=== PATIENT | male | born 1975 | race Caucasian/White ===

== ENCOUNTER 2016-12-02 06:33 | Inpatient (IN) ==
[2016-12-02 07:00] LABS: Bilirubin,Urine Negative (Negative); Blood,Urine Negative (Negative); Clarity,Urine Clear (Clear); Color,Urine Yellow (Yellow); Glucose,Urine (UA) Normal (Normal); Ketones,Urine Negative (Negative); Leukocyte Esterase,Urine Negative (Negative); Nitrite,Urine Negative (Negative); Protein,Urine Negative (Neg-Trace); Specific Gravity,Urine 1.005 (1.010-1.025); Urobilinogen,Urine Normal (Normal)
[2016-12-02 07:06] LABS: Amphetamine Screen,Urine Negative ng/mL (Cutoff=1000); Barbiturate Screen,Urine Negative ng/mL (Cutoff=200); Benzodiazepines Screen,Urine Negative ng/mL (Cutoff=200); Cannabinoid Screen,Urine Negative ng/mL (Cutoff = 50); Cocaine Screen,Urine Positive ng/mL (Cutoff= 300); Opiate Screen,Urine Positive ng/mL (Cutoff=300); Phencyclidine Screen,Urine Negative ng/mL (Cutoff=25)
--- NOTE | 2016-12-02 07:18 | Emergency Department Note ---
Disposition Clinical Impression: Suicidal ideation Depression Qualifiers: Depression Type: major depressive disorder Major depression recurrence: recurrent Active/Remission status: currently active Major depression episode severity: moderate Qualified Code(s): F33.1 - Major depressive disorder, recurrent, moderate Alcoholism with alcohol dependence Qualifiers: Substance use status: with intoxication Complication of substance-induced condition: uncomplicated Qualified Code(s): F10.220 - Alcohol dependence with intoxication, uncomplicated Disposition: Admitted As Inpatient Condition: Fair Referrals: NO,PCP [Primary Care Provider] - Forms: ED Satisfaction Letter Psych HPI - General Chief Complaint: ED Psychiatric Symptoms Stated Complaint: SI Time Seen by Provider: 12/02/16 07:06 Source: patient Nursing Notes Reviewed: Yes Vital Signs Reviewed: Yes - History of Present Illness HPI Narrative: Chief complaint: Suicidal ideation history of chief complaint: This is a 41-year-old gentleman who studies been suicidal the last day. Said a long history of psychiatric problems and Mark depression. He says that he would probably get in his car and tried to wreck his car as a plan. Says he has been off his medicines for a while cages quit taking them. He states he uses heroin sometimes he smokes. He also drinks alcohol. He is cooperative here. He does have some track quiroz on his right arm but noticed. Infected. He also has hepatitis C with no medical care. He has a flat affect but is cooperative. He thinks he needs admitted to the hospital. He says last admission was a few months ago and he thinks it was in [place]. Past medical history reviewed, nurse's notes reviewed, medications reviewed, allergies reviewed. - Related Data Allergies Allergy/AdvReac Type Severity Reaction Status Date / Time Penicillins Allergy Hives Verified 12/02/16 06:35 Review of Systems: Review of systems are positive for depression and suicidal ideations. Negative for audio or visual hallucinations. Past Medical History - Past Medical History Medical history: Reports: hepatitis Psychiatric history: Reports: anxiety, bipolar, depression, prior suicide attempt, previous psychiatric hospitalization - Social History Smoking Status: Current every day smoker Smokeless Tobacco Status: No Alcohol use: Reports: heavy, recent Drug use: Reports: marijuana Physical Exam Vital signs temperature is 97.9, pulse is 99 and regular, respirations are 20 and unlabored, BP is 123/78, pulse ox is 95% on room air he was 72 kg. General he is alert cooperative flat affect. HEENT is normocephalic, PERRL, EOMI, no scleral icterus, midline airway no drooling or stridor. No nystagmus. Cardiovascular regular rate and rhythm with a recheck heart rate of 78, no rubs no murmurs Respiratory lungs are clear to auscultation bilaterally with good aeration Abdomen is soft nonsurgical good bowel sounds no masses Dermatologic: Skin is warm and dry no acute rash petechiae or jaundice. He does have multiple tattoos on his body 90s appear to be infected. Tract quiroz on his right arm with no signs of cellulitis or infection or abscess Neurologic he is alert to person place and time GCS is 15, he moves all extremities no focal deficits psychologic: he does have a flat affect but is cooperative here not of agitation or anxiety - General Limitations: no limitations General appearance: alert Course Vital Signs Temperature 97.9 F 12/02/16 06:35 Pulse Rate 99 12/02/16 06:35 Respiratory Rate 20 12/02/16 06:35 Blood Pressure 123/78 12/02/16 06:35 O2 Sat by Pulse Oximetry 94 L 12/02/16 06:35 Temperature 98.4 F 12/02/16 13:19 Pulse Rate 102 12/02/16 13:19 Respiratory Rate 18 12/02/16 13:19 Blood Pressure 123/75 12/02/16 13:19 O2 Sat by Pulse Oximetry 95 12/02/16 13:19 Oxygen Delivery Oxygen Delivery Room Air Psych - MDM Narrative Medical decision making narrative: Labs were drawn and urine was collected. We will make him a no AMA, suicide precautions. Once labs are back we will consult with 1A for evaluation and possible admission. He is in agreement to this plan. 0815 hrs.: Patient's labs are coming back his LFTs are slightly elevated most likely due to his previous drug abuse and hepatitis C. His all cause 198. We will need to wait was alcohol is below 100 before 1able evaluate him. Will repeat alcohol level about 5 hours from the first level is that should be down within the normal range. He is in agreement with this plan. He is updated on status. 1327 hrs.: This patient stable. He still voicing suicidal ideations. Spoke with 1a.m. they are coming to see him for evaluation. He is in agreement with plan. 1540 hrs.: 1-A evaluated the patient they think no admit him. He is homeless as expected. there speaking with psychiatry now. 1600 hrs.: Psychiatry is agreed to admit him. Patient's in agreement. Turning a little fidgety and anxious. Mother started him on some Valium discussed this with psychiatry and they are in agreement that. Patient's admitted to psychiatric services suicidal ideations, depression, and chronic alcoholism. Patient's in agreement with this plan. - Lab Data Result diagrams: 12/02/16 07:24 12/02/16 07:24 Lab Results 12/02/16 12/02/16 12/02/16 Range/Units 06:49 06:49 07:24 WBC 8.9 (4.3-11.1) K/mcL RBC 4.90 (4.19-5.50) M/mcL Hgb 15.7 (12.9-16.9) g/dL Hct 44.6 (37.5-50.1) % MCV 91.0 (83.0-100.0) fL MCH 32.0 (28.0-33.3) pg MCHC 35.2 (31.6-35.5) g/dL RDW 11.8 (11.5-14.5) % Plt Count 342 (140-400) K/mcL MPV 9.4 (9.4-12.4) fL Immature Gran % 0.7 (0-4) % Seg Neutrophils % 65.9 % Lymphocytes % 27.8 % Monocytes % 4.1 % Eosinophils % 0.7 % Basophils % 0.8 % Neutrophils # 5.9 (1.6-8.9) K/mcL Lymphocytes # 2.5 (0.6-4.6) K/mcL Monocytes # 0.4 (0.0-1.3) K/mcL Eosinophils # 0.1 (0.0-0.6) K/mcL Basophils # 0.1 (0.0-0.2) K/mcL Sodium (136-145) mEq/L Potassium (3.5-4.5) mEq/L Chloride (98-109) mEq/L Carbon Dioxide (19-29) mEq/L BUN (8-26) mg/dL Creatinine (0.72-1.25) mg/dL Est GFR ( Amer) (> 60) Est GFR (Non-Af Amer) (> 60) BUN/Creatinine Ratio (6-26) Glucose (70-99) mg/dL Calculated Osmolality (280-300) Calcium (8.6-10.8) mg/dL Total Bilirubin (0.2-1.2) mg/dL Direct Bilirubin (0.0-0.5) mg/dL Indirect Bilirubin (0.0-1.2) mg/dL AST (5-34) Units/L ALT (0-55) Units/L Alkaline Phosphatase (38-126) Units/L Serum Total Protein (6.0-8.3) g/dL Albumin (3.5-5.0) g/dL Globulin (2.4-3.5) g/dL Albumin/Globulin Ratio (1.1-2.2) TSH (0.350-4.840) mcIU/mL Urine Color Yellow (Yellow) Urine Clarity Clear (Clear) Urine pH 6.0 (5.0-8.0) pH Units Ur Specific [place] 1.005 L (1.010-1.025) Urine Protein Negative (Neg-Trace) mg/dL Urine Glucose (UA) Normal (Normal) mg/dL Urine Ketones Negative (Negative) mg/dL Urine Blood Negative (Negative) Urine Nitrite Negative (Negative) Urine Bilirubin Negative (Negative) Urine Urobilinogen Normal (Normal) mg/dL Ur Leukocyte Esterase Negative (Negative) Ur Culture Indicated? NO (NO) Salicylates (15-30) mg/dL Urine Opiates Screen Positive H (Pxagsa=332) ng/mL Acetaminophen (10-30) mcg/mL Ur Barbiturates Screen Negative (Fnocyz=328) ng/mL Ur Phencyclidine Scrn Negative (Cutoff=25) ng/mL Ur Amphetamines Screen Negative (Hywdpu=1157) ng/mL U Benzodiazepines Scrn Negative (Jqggct=052) ng/mL Urine Cocaine Screen Positive H (Cutoff= 300) ng/mL U Marijuana (THC) Screen Negative (Cutoff = 50) ng/mL Ethyl Alcohol (0-10) mg/dL 12/02/16 12/02/16 12/02/16 Range/Units 07:24 12:57 15:30 WBC (4.3-11.1) K/mcL RBC (4.19-5.50) M/mcL Hgb (12.9-16.9) g/dL Hct (37.5-50.1) % MCV (83.0-100.0) fL MCH (28.0-33.3) pg MCHC (31.6-35.5) g/dL RDW (11.5-14.5) % Plt Count (140-400) K/mcL MPV (9.4-12.4) fL Immature Gran % (0-4) % Seg Neutrophils % % Lymphocytes % % Monocytes % % Eosinophils % % Basophils % % Neutrophils # (1.6-8.9) K/mcL Lymphocytes # (0.6-4.6) K/mcL Monocytes # (0.0-1.3) K/mcL Eosinophils # (0.0-0.6) K/mcL Basophils # (0.0-0.2) K/mcL Sodium 140 (136-145) mEq/L Potassium 4.1 (3.5-4.5) mEq/L Chloride 105 (98-109) mEq/L Carbon Dioxide 22 (19-29) mEq/L BUN 6 L (8-26) mg/dL Creatinine 0.74 (0.72-1.25) mg/dL Est GFR ( Amer) > 60 (> 60) Est GFR (Non-Af Amer) > 60 (> 60) BUN/Creatinine Ratio 8 (6-26) Glucose 105 H (70-99) mg/dL Calculated Osmolality 288 (280-300) Calcium 9.4 (8.6-10.8) mg/dL Total Bilirubin 0.5 (0.2-1.2) mg/dL Direct Bilirubin 0.2 (0.0-0.5) mg/dL Indirect Bilirubin 0.3 (0.0-1.2) mg/dL AST 78 H (5-34) Units/L ALT 131 H (0-55) Units/L Alkaline Phosphatase 111 (38-126) Units/L Serum Total Protein 8.5 H (6.0-8.3) g/dL Albumin 4.0 (3.5-5.0) g/dL Globulin 4.5 H (2.4-3.5) g/dL Albumin/Globulin Ratio 0.9 L (1.1-2.2) TSH 1.354 (0.350-4.840) mcIU/mL Urine Color (Yellow) Urine Clarity (Clear) Urine pH (5.0-8.0) pH Units Ur Specific [place] (1.010-1.025) Urine Protein (Neg-Trace) mg/dL Urine Glucose (UA) (Normal) mg/dL Urine Ketones (Negative) mg/dL Urine Blood (Negative) Urine Nitrite (Negative) Urine Bilirubin (Negative) Urine Urobilinogen (Normal) mg/dL Ur Leukocyte Esterase (Negative) Ur Culture Indicated? (NO) Salicylates < 5.0 L (15-30) mg/dL Urine Opiates Screen (Llajhw=335) ng/mL Acetaminophen < 1.0 L (10-30) mcg/mL Ur Barbiturates Screen (Ufrbzz=110) ng/mL Ur Phencyclidine Scrn (Cutoff=25) ng/mL Ur Amphetamines Screen (Eoodmg=3041) ng/mL U Benzodiazepines Scrn (Frgakc=592) ng/mL Urine Cocaine Screen (Cutoff= 300) ng/mL U Marijuana (THC) Screen (Cutoff = 50) ng/mL Ethyl Alcohol 198 H 98 H 42 H (0-10) mg/dL Psychiatric Medical Clearance - Medical Clearance Checklist Medical History: No Social History Section defined Current Vitals: Last Vital Signs Temp 98.4 F 12/02/16 13:19 Pulse 102 12/02/16 13:19 Resp 18 12/02/16 13:19 BP 123/75 12/02/16 13:19 Pulse Ox 95 12/02/16 13:19 Psychiatric Lab Panel: Drug Levels and Toxicity 12/02/16 12/02/16 12/02/16 06:49 07:24 12:57 Urine Opiates Screen Positive H Acetaminophen < 1.0 L Ur Barbiturates Screen Negative Ur Phencyclidine Scrn Negative Ur Amphetamines Screen Negative U Benzodiazepines Scrn Negative Urine Cocaine Screen Positive H U Marijuana (THC) Screen Negative Ethyl Alcohol 198 H 98 H 12/02/16 15:30 Urine Opiates Screen Acetaminophen Ur Barbiturates Screen Ur Phencyclidine Scrn Ur Amphetamines Screen U Benzodiazepines Scrn Urine Cocaine Screen U Marijuana (THC) Screen Ethyl Alcohol 42 H Abnormal Labs: Abnormal lab results BUN 6 mg/dL (8-26) L 12/02/16 07:24 Glucose 105 mg/dL (70-99) H 12/02/16 07:24 AST 78 Units/L (5-34) H 12/02/16 07:24 ALT 131 Units/L (0-55) H 12/02/16 07:24 Serum Total Protein 8.5 g/dL (6.0-8.3) H 12/02/16 07:24 Globulin 4.5 g/dL (2.4-3.5) H 12/02/16 07:24 Albumin/Globulin Ratio 0.9 (1.1-2.2) L 12/02/16 07:24 Ur Specific [place] 1.005 (1.010-1.025) L 12/02/16 06:49 Salicylates < 5.0 mg/dL (15-30) L 12/02/16 07:24 Urine Opiates Screen Positive ng/mL (Qyyiyo=936) H 12/02/16 06:49 Acetaminophen < 1.0 mcg/mL (10-30) L 12/02/16 07:24 Urine Cocaine Screen Positive ng/mL (Cutoff= 300) H 12/02/16 06:49 Ethyl Alcohol 42 mg/dL (0-10) H 12/02/16 15:30 Statement of Medical Clearance: I have evaluated the patient, reviewed diagnostic information, and certify that the patient's medical condition is sufficiently stable that transfer to the psychiatric unit does not pose a significant risk of deterioration.
[2016-12-02 07:48] LABS: Alanine Aminotransferase 131 Units/L (0-55); Albumin/Globulin Ratio 0.9 (1.1-2.2); Alkaline Phosphatase 111 Units/L (38-126); Aspartate Amino Transferase 78 Units/L (5-34); BUN/Creatinine Ratio 8 (6-26); Bilirubin,Direct 0.2 mg/dL (0.0-0.5); Bilirubin,Indirect 0.3 mg/dL (0.0-1.2); Bilirubin,Total 0.5 mg/dL (0.2-1.2); Blood Urea Nitrogen 6 mg/dL (8-26); Calcium 9.4 mg/dL (8.6-10.8); Carbon Dioxide 22 mEq/L (19-29); Chloride 105 mEq/L (98-109); Ethanol 198 mg/dL (0-10); Globulin 4.5 g/dL (2.4-3.5); Glucose 105 mg/dL (70-99); Osmolality,Calculated 288 (280-300); Potassium 4.1 mEq/L (3.5-4.5); Sodium 140 mEq/L (136-145); Total Protein 8.5 g/dL (6.0-8.3); eGFR For African Americans > 60 (> 60); eGFR For Non-African Americans > 60 (> 60)
[2016-12-02 07:49] LABS: Basophils # 0.1 K/mcL (0.0-0.2); Basophils % 0.8 %; Eosinophils # 0.1 K/mcL (0.0-0.6); Eosinophils % 0.7 %; Hematocrit 44.6 % (37.5-50.1); Hemoglobin 15.7 g/dL (12.9-16.9); Immature Granulocytes % 0.7 % (0-4); Lymphocytes # 2.5 K/mcL (0.6-4.6); Lymphocytes % 27.8 %; Mean Corpuscular HGB Conc 35.2 g/dL (31.6-35.5); Mean Platelet Volume 9.4 fL (9.4-12.4); Monocytes # 0.4 K/mcL (0.0-1.3); Monocytes % 4.1 %; Neutrophils # 5.9 K/mcL (1.6-8.9); Platelet Count 342 K/mcL (140-400); Red Cell Distribution Width 11.8 % (11.5-14.5); Segmented Neutrophils % 65.9 %
[2016-12-02 07:52] LABS: Acetaminophen < 1.0 mcg/mL (10-30); Salicylate < 5.0 mg/dL (15-30)
[2016-12-02 08:10] LABS: Thyroid Stimulating Hormone 1.354 mcIU/mL (0.350-4.840)
[2016-12-02] MEDS ORDERED: diazePAM 10 MG TABLET PO ONE (16:04)
[2016-12-02] MEDS ORDERED: Ibuprofen 400 MG TABLET PO PRN (16:27)
[2016-12-02] MEDS ORDERED: MOM Conc 10 ML UD.LIQ PO PRN (16:27)
[2016-12-02] MEDS ORDERED: *HR* LORazepam 1 MG TABLET PO PRN (16:27)
[2016-12-02] MEDS ORDERED: *HR* LORazepam 2 MG/ML VIAL IM PRN (16:27)
[2016-12-02] MEDS ORDERED: Haloperidol Lactate 5 MG/ML VIAL IM PRN (16:27)
[2016-12-02] MEDS ORDERED: Mag Hydrox/Al Hydrox/Simeth 30 ML UDC PO PRN (16:27)
[2016-12-02] MEDS: Gabapentin 400 MG CAPSULE PO SCH ×2 (17:49→21:18)
[2016-12-03] MEDS: Gabapentin 400 MG CAPSULE PO SCH ×3 (09:27→21:18)
--- NOTE | 2016-12-03 11:21 | Psychiatry History & Physical ---
Date of Encounter: 12/03/16 Time of Encounter: 11:18 History of Present Illness Patient Stated Chief Complaint: I feel suicidal Medicare Admission Attestation: For traditional Medicare patients the provided hospital inpatient services are reasonable and necessary and in the case of services not specified as inpatient -only under 42 CFR 419.22 (n), that they are appropriately provided as inpatient services in accordance 42 CFR 412.3. For Critical Access Hospital the patient may reasonably be expected to be discharged or transferred to a hospital within 96 hours after admission to the Critical Access Hospital. Admitted From: Emergency Dept Plans for Post Hospital Care: Home History of Present Illness: Mr. Richardson is a 41 year old male Was referred for hospitalization from emergency department where he presented with symptoms of depression along with suicidal ideation with a plan to drive his car into oncoming traffic or jump off the bridge and end his life. Patient reported that he has been struggling from depression off and on for the last 25 years. He also has an extensive history of polysubstance dependence. Patient reported that he is been noticing worsening of his depression along with having an extensive use of drugs and alcohol. Patient reported that he has been noticing low mood and anhedonia hopelessness helplessness time between spells low energy levels and recurrent suicidal thoughts and ideations. He reported that he is unable to contract for safety and is contemplating on ending his life by either driving his car into oncoming traffic or jumping off the bridge. Since patient was actively suicidal and able to contract for safety at was decided to hospitalize him at the [facility] behavioral health services for safety concerns. Past Med Surg Social Fam HX - Past Medical History Medical history: hepatitis - Past Psychiatric History Psychiatric history: Reports: depression, previous psychiatric hospitalization Past psychiatric history details: Patient reported that he is in multiple prior psychiatric hospitalization in the last 25 years his last hospitalization was a few months ago in [place]. Patient is currently receiving outpatient treatment from Dr. Patel and has been prescribed Zoloft and Seroquel and Klonopin. Patient goes to his outpatient appointment with [facility]. Family psychiatric history: Yes Family Psychiatric History Details: Patient's grandfather is from mental illness. Family History of Suicide: None - Social History Smoking Status: Current every day smoker Smokeless Tobacco Status: No Alcohol use: heavy, recent Drug use: cocaine, opiates, marijuana Additional substance use detail: The patient reported extensive history of heavy drug use. Patient reported that he has been using drugs for the last 25 years and has been using everything. Most recently he has been using opioids cocaine and has been drinking heavily. Occupational status: unemployed Current living situation: Homeless Activity Level: Independent ambulation Recent Out of Country Travel Within the Last 8 Weeks: No Exposure or Possible Exposure to Illness During Travel: No Additional social history: Patient is currently single and is unemployed and homeless. He is awaiting disability. He has one 4-year-old daughter from a previous relationship. He is currently on probation. Medications & Allergies Gabapentin [Neurontin] 800 mg PO TID 12/02/16 [History] Quetiapine Fumarate [Seroquel] 400 mg PO DAILY 12/02/16 [History] Sertraline [Zoloft] 100 mg PO DAILY 12/02/16 [History] Allergies Penicillins Allergy (Verified 12/02/16 06:35) Hives Review of Systems Psychiatric: Reports: depression, anxiety, suicidal ideation, difficulty concentrating, hopelessness Mental Status Exam Patient orientation: Yes Person, Yes Time, Yes Place Level of alertness: Sedated Patient appearance: Disheveled Behavior: anxious, withdrawn Psychomotor activity: Slowed Eye contact: Minimal Contact Mood description: Depressed Affect description: blunted, dysphoric Speech pattern: Slowed Speech volume: Soft/Quiet Thought process: Linear, Goal Oriented Thought content: Yes Suicidal ideation Perceptual disturbances: No Auditory hallucinations, No Visual hallucinations Attention span: Capable of Focused Attention Memory description: Grossly Intact Patient reliability: Reliable Historian Intelligence estimate: Average Judgment: Limited Insight: Minimal Results - Vital Signs Vital signs: Temp Pulse Resp BP Pulse Ox 98.3 F 98 16 115/75 95 12/03/16 08:00 12/03/16 08:00 12/03/16 08:00 12/03/16 08:00 12/02/16 13:19 - Labs Labs: Laboratory Last Values WBC 8.9 K/mcL (4.3-11.1) 12/02/16 07:24 RBC 4.90 M/mcL (4.19-5.50) 12/02/16 07:24 Hgb 15.7 g/dL (12.9-16.9) 12/02/16 07:24 Hct 44.6 % (37.5-50.1) 12/02/16 07:24 MCV 91.0 fL (83.0-100.0) 12/02/16 07:24 MCH 32.0 pg (28.0-33.3) 12/02/16 07:24 MCHC 35.2 g/dL (31.6-35.5) 12/02/16 07:24 RDW 11.8 % (11.5-14.5) 12/02/16 07:24 Plt Count 342 K/mcL (140-400) 12/02/16 07:24 MPV 9.4 fL (9.4-12.4) 12/02/16 07:24 Immature Gran % 0.7 % (0-4) 12/02/16 07:24 Seg Neutrophils % 65.9 % 12/02/16 07:24 Lymphocytes % 27.8 % 12/02/16 07:24 Monocytes % 4.1 % 12/02/16 07:24 Eosinophils % 0.7 % 12/02/16 07:24 Basophils % 0.8 % 12/02/16 07:24 Neutrophils # 5.9 K/mcL (1.6-8.9) 12/02/16 07:24 Lymphocytes # 2.5 K/mcL (0.6-4.6) 12/02/16 07:24 Monocytes # 0.4 K/mcL (0.0-1.3) 12/02/16 07:24 Eosinophils # 0.1 K/mcL (0.0-0.6) 12/02/16 07:24 Basophils # 0.1 K/mcL (0.0-0.2) 12/02/16 07:24 Sodium 140 mEq/L (136-145) 12/02/16 07:24 Potassium 4.1 mEq/L (3.5-4.5) 12/02/16 07:24 Chloride 105 mEq/L (98-109) 12/02/16 07:24 Carbon Dioxide 22 mEq/L (19-29) 12/02/16 07:24 BUN 6 mg/dL (8-26) L 12/02/16 07:24 Creatinine 0.74 mg/dL (0.72-1.25) 12/02/16 07:24 Est GFR ( Amer) > 60 (> 60) 12/02/16 07:24 Est GFR (Non-Af Amer) > 60 (> 60) 12/02/16 07:24 BUN/Creatinine Ratio 8 (6-26) 12/02/16 07:24 Glucose 105 mg/dL (70-99) H 12/02/16 07:24 Calculated Osmolality 288 (280-300) 12/02/16 07:24 Calcium 9.4 mg/dL (8.6-10.8) 12/02/16 07:24 Total Bilirubin 0.5 mg/dL (0.2-1.2) 12/02/16 07:24 Direct Bilirubin 0.2 mg/dL (0.0-0.5) 12/02/16 07:24 Indirect Bilirubin 0.3 mg/dL (0.0-1.2) 12/02/16 07:24 AST 78 Units/L (5-34) H 12/02/16 07:24 ALT 131 Units/L (0-55) H 12/02/16 07:24 Alkaline Phosphatase 111 Units/L (38-126) 12/02/16 07:24 Serum Total Protein 8.5 g/dL (6.0-8.3) H 12/02/16 07:24 Albumin 4.0 g/dL (3.5-5.0) 12/02/16 07:24 Globulin 4.5 g/dL (2.4-3.5) H 12/02/16 07:24 Albumin/Globulin Ratio 0.9 (1.1-2.2) L 12/02/16 07:24 TSH 1.354 mcIU/mL (0.350-4.840) 12/02/16 07:24 Urine Color Yellow (Yellow) 12/02/16 06:49 Urine Clarity Clear (Clear) 12/02/16 06:49 Urine pH 6.0 pH Units (5.0-8.0) 12/02/16 06:49 Ur Specific [place] 1.005 (1.010-1.025) L 12/02/16 06:49 Urine Protein Negative mg/dL (Neg-Trace) 12/02/16 06:49 Urine Glucose (UA) Normal mg/dL (Normal) 12/02/16 06:49 Urine Ketones Negative mg/dL (Negative) 12/02/16 06:49 Urine Blood Negative (Negative) 12/02/16 06:49 Urine Nitrite Negative (Negative) 12/02/16 06:49 Urine Bilirubin Negative (Negative) 12/02/16 06:49 Urine Urobilinogen Normal mg/dL (Normal) 12/02/16 06:49 Ur Leukocyte Esterase Negative (Negative) 12/02/16 06:49 Ur Culture Indicated? NO (NO) 12/02/16 06:49 Salicylates < 5.0 mg/dL (15-30) L 12/02/16 07:24 Urine Opiates Screen Positive ng/mL (Spjacn=580) H 12/02/16 06:49 Acetaminophen < 1.0 mcg/mL (10-30) L 12/02/16 07:24 Ur Barbiturates Screen Negative ng/mL (Hprmuk=676) 12/02/16 06:49 Ur Phencyclidine Scrn Negative ng/mL (Cutoff=25) 12/02/16 06:49 Ur Amphetamines Screen Negative ng/mL (Cwecpp=4392) 12/02/16 06:49 U Benzodiazepines Scrn Negative ng/mL (Yycsea=017) 12/02/16 06:49 Urine Cocaine Screen Positive ng/mL (Cutoff= 300) H 12/02/16 06:49 U Marijuana (THC) Screen Negative ng/mL (Cutoff = 50) 12/02/16 06:49 Ethyl Alcohol 42 mg/dL (0-10) H 12/02/16 15:30 Assessment and Plan (1) Substance or medication-induced depressive disorder Current visit: Yes Status: Acute Plan: Admit inpatient for safety and stabilization, Close observation, Suicide Precautions per unit protocol, Encourage participation in unit milieu, Group Therapy, Monitor sleep, Monitor appetite, Family/Supportive other meeting Additional Plan: Patient will be continued on antidepressant medication and more stabilizer to help overcome his depressive symptoms. Patient's Zoloft dose will be increased for his depression. Risks, benefits, side effects, alternatives discussed w/pt: Yes Patient agreeable to treatment: Yes Plans for Post Hospital Care: Transfer Other Estimated Length of Stay (Days): 4 (2) Polysubstance dependence including opioid drug with daily use Current visit: Yes Status: Acute Plan: Admit inpatient for safety and stabilization, Close observation, Suicide Precautions per unit protocol, Encourage participation in unit milieu, Group Therapy, Monitor sleep, Monitor appetite Additional Plan: Patient will be detoxed from alcohol using a Valium taper patient will be reassessed periodically for any withdrawal symptoms of alcohol and will be treated accordingly. Patient will also be treated for any withdrawal symptoms or opioids and will get symptomatic treatment. Patient will be counseled extensively regarding his drug and alcohol use in his psychological and physiological impact and will be helped to identify triggers and develop a relapse prevention plan Risks, benefits, side effects, alternatives discussed w/pt: Yes Patient agreeable to treatment: Yes Plans for Post Hospital Care: Transfer Other Estimated Length of Stay (Days): 4
[2016-12-03] MEDS: diazePAM 10 MG TABLET PO SCH ×2 (14:23→21:18)
[2016-12-04] MEDS: diazePAM 10 MG TABLET PO SCH (09:36)
[2016-12-04] MEDS: Gabapentin 400 MG CAPSULE PO SCH ×3 (09:36→20:35)
--- NOTE | 2016-12-04 13:10 | Psychiatry Progress Note ---
Date of Encounter: 12/04/16 Time of Encounter: 12:07 Subjective Interval history: Patient seen and interviewed. Not much change from yesterday. Patient continued to verbalize hopelessness helplessness and suicidal ideations. He is isolated and withdrawn. Patient is going through some withdrawals from alcohol. Patient is reporting of low energy levels and a motivation. Patient is encouraged to attend groups and participate in activities. Patient is tolerating medications fairly well. We will continue with the Valium taper. Review of Systems Psychiatric: Reports: depression, anxiety, suicidal ideation, difficulty concentrating, hopelessness Objective: Exam Patient orientation: Yes Person, Yes Time, Yes Place Level of alertness: Sedated Patient appearance: Disheveled Behavior: anxious, withdrawn Psychomotor activity: Slowed Eye contact: Minimal Contact Mood description: Depressed Affect description: blunted, dysphoric Speech pattern: Slowed Speech volume: Soft/Quiet Thought process: Linear, Goal Oriented Thought content: Yes Suicidal ideation Perceptual disturbances: No Auditory hallucinations, No Visual hallucinations Judgment: Limited Insight: Minimal Results - Vital Signs Vital Signs: Temp Pulse Resp BP Pulse Ox 97.3 F L 76 20 116/74 95 12/04/16 08:00 12/04/16 08:00 12/04/16 08:00 12/04/16 08:00 12/02/16 13:19 Assessment and Plan (1) Substance or medication-induced depressive disorder Current visit: Yes Status: Acute Additional Plan: Continue with the current medications. Patient is encouraged to start working on relapse prevention and safety plan. Risks, benefits, side effects, alternatives discussed w/pt: Yes Patient agreeable to treatment: Yes (2) Polysubstance dependence including opioid drug with daily use Current visit: Yes Status: Acute Additional Plan: Lela's counseling sessions regarding his drug use and psychological and physiological impact and was helped to identify triggers and develop a relapse prevention plan. We will continue with the Valium taper for his alcohol withdrawal symptoms. Risks, benefits, side effects, alternatives discussed w/pt: Yes Patient agreeable to treatment: Yes Consult Discharge Plan - Plan Referrals: NO,PCP [Primary Care Provider] -
[2016-12-04] MEDS ORDERED: diazePAM 10 MG TABLET PO SCH (21:00)
[2016-12-04] MEDS ORDERED: diazePAM 10 MG TABLET PO ONE (21:00)
[2016-12-05] MEDS: Gabapentin 400 MG CAPSULE PO SCH ×3 (08:38→21:20)
[2016-12-05] MEDS ORDERED: diazePAM 5 MG TABLET PO ONE (09:00)
[2016-12-05] MEDS ORDERED: traZODone 50 MG TABLET PO SCH (21:00)
[2016-12-06] MEDS ORDERED: traZODone 50 MG TABLET PO ONE (00:25)
[2016-12-06] MEDS: Gabapentin 400 MG CAPSULE PO SCH (08:37)
--- NOTE | 2016-12-06 08:41 | Psychiatry Progress Note ---
Date of Encounter: 12/05/16 Time of Encounter: 04:30 Subjective Interval history: Patient seen for follow-up the nursing staff reports he continued to isolate and not participate in groups continued to be anxious. He is reporting adequate sleep but continued threatening. Anxiety is also anxious about discharged denies any suicidal ideation. She denies any side effects of medication if you his medications are helpful. Review of Systems Psychiatric: Reports: depression, anxiety, difficulty concentrating Objective: Exam Patient orientation: Yes Person, Yes Time, Yes Place Level of alertness: Alert Patient appearance: Appropriate Behavior: calm, cooperative, anxious, withdrawn Psychomotor activity: Slowed Eye contact: Minimal Contact Mood description: Anxious Affect description: dysphoric Speech pattern: Slowed Speech volume: Soft/Quiet Thought process: Linear, Goal Oriented Perceptual disturbances: No Auditory hallucinations, No Visual hallucinations Judgment: Limited Insight: Minimal Results - Vital Signs Vital Signs: Temp Pulse Resp BP Pulse Ox 98.6 F 83 16 131/75 95 12/05/16 19:39 12/05/16 19:39 12/05/16 19:39 12/05/16 19:39 12/02/16 13:19 Assessment and Plan (1) Alcoholism with alcohol dependence Current visit: Yes Status: Resolved Plan: Continue hospitalization, Close observation, Group Therapy Qualifiers: Complication of substance-induced condition: uncomplicated Qualified Code(s ): F10.220 - Alcohol dependence with intoxication, uncomplicated Consult Discharge Plan - Plan [facility]: [facility] [[facility]] (You will enter services at [facility] on 12/06/2016.)
--- NOTE | 2016-12-06 09:01 | Discharge Summary ---
Date of Encounter: 12/06/16 Time of Encounter: 08:59 Diagnosis - Discharge Diagnosis (1) Alcoholism with alcohol dependence Priority: Secondary Status: Acute Qualifiers: Complication of substance-induced condition: uncomplicated Qualified Code(s ): F10.230 - Alcohol dependence with withdrawal, uncomplicated (2) Depression Priority: Primary Status: Acute Qualifiers: Depression Type: major depressive disorder Major depression recurrence: recurrent Active/Remission status: currently active Major depression episode severity: moderate Qualified Code(s): F33.1 - Major depressive disorder, recurrent, moderate Medications - Discharge Medications Prescriptions: Gabapentin [Neurontin] 800 mg PO TID 30 Days Quetiapine Fumarate [Seroquel] 200 mg PO HS 30 Days Sertraline [Zoloft] 150 mg PO DAILY 30 Days TraZODone 100 mg PO HS 30 Days Gabapentin [Neurontin] 800 mg PO TID 30 Days 12/06/16 [Rx] Quetiapine Fumarate [Seroquel] 200 mg PO HS 30 Days 12/06/16 [Rx] Sertraline [Zoloft] 150 mg PO DAILY 30 Days 12/06/16 [Rx] TraZODone 100 mg PO HS 30 Days 12/06/16 [Rx] Allergies Penicillins Allergy (Verified 12/02/16 06:35) Hives Provider Date of admission: 12/02/16 16:16 Primary care physician: PCP NO Discharging clinician: Haseeb Haynes Assessment and Plan - Patient/Caregiver Discharge Instructions Activity: resume usual activities as tolerated Diet: regular diet - Follow up Plan Follow up with: [facility] [Other] - 12/06/16 ([facility] Disposition: Home, Self-Care Hospital Course Hospital course: Mr. Richardson is a 41 year old male who was admitted from the emergency department where he presented was depression and suicidal ideation was a plan to drive his car into oncoming traffic or jump off a bridge. Patient has a long history of depression and polysubstance abuse and dependence for 25 years and he was experiencing increasing anhedonia hopelessness and helplessness and admission note being compliant with his medication. On admission patient was placed on his medication as per record He was reporting improved sleep and mortgage improved with treatment he participated in activities on the unit and group therapy and prior to discharge he was denying any suicidal ideation he was medically stable and motivated to follow up as per his discharge plan. - Time Spent with Patient Total time spent providing and/or coordinating discharge services: Less than 30 minutes Quality - Multiple Antipsychotics Patient discharged on 2 or more antipsychotic medications: No Procedures - Procedures Procedures: Medication Management, Crisis Stabilization, Supportive Therapy, Group Therapy, Psychoeducational Therapy Mental Status Exam - Mental Status Exam Patient orientation: Yes Person, Yes Time, Yes Place Level of alertness: Alert Patient appearance: Appropriate Behavior: calm, cooperative, withdrawn Psychomotor activity: Normal Eye contact: Maintains Eye Contact Mood description: Euthymic/stable Affect description: euthymic Speech pattern: Normal rate, Normal rhythm, Normal tone Speech Volume: Normal Thought process: Linear, Goal Oriented Thought Content: Yes Intact, No Suicidal ideation Perceptual Disturbances: No Auditory hallucinations, No Visual hallucinations Judgment: Good Insight: Partial
[2016-12-06 10:33] VITALS: BP 134/94
== END 2016-12-06 11:30 | disposition home or self-care (01) | DRG 751 ==
LOC: EMEROO 06:33 → 1ANU 16:16 → SUATTDRO 16:16 → 1ANU 16:20
PROVIDERS: ADMIT Student in an Organized Health Care Education/Training Program; ATTEND Psychiatry & Neurology Psychiatry

== ENCOUNTER 2017-03-25 20:49 | Inpatient (IN) ==
[2017-03-25] MEDS ORDERED: Mag Hydrox/Al Hydrox/Simeth 30 ML UDC PO PRN (22:00)
[2017-03-25] MEDS ORDERED: Ibuprofen 400 MG TABLET PO PRN (22:00)
[2017-03-25] MEDS ORDERED: *HR* LORazepam 1 MG TABLET PO PRN (22:00)
[2017-03-25] MEDS ORDERED: MOM Conc 10 ML UD.LIQ PO PRN (22:00)
[2017-03-25] MEDS ORDERED: *HR* LORazepam 2 MG/ML VIAL IM PRN (22:00)
[2017-03-25] MEDS ORDERED: Haloperidol Lactate 5 MG/ML VIAL IM PRN (22:00)
--- NOTE | 2017-03-26 12:25 | Psychiatry History & Physical ---
Date of Encounter: 03/26/17 Time of Encounter: 12:28 History of Present Illness Medicare Admission Attestation: For traditional Medicare patients the provided hospital inpatient services are reasonable and necessary and in the case of services not specified as inpatient -only under 42 CFR 419.22 (n), that they are appropriately provided as inpatient services in accordance 42 CFR 412.3. For Critical Access Hospital the patient may reasonably be expected to be discharged or transferred to a hospital within 96 hours after admission to the Critical Access Hospital. Admitted From: Direct Admit Plans for Post Hospital Care: Transfer Other History of Present Illness: Mr. Richardson is a 42 year old male Who presented to the [facility] emergency department with complaints of depression and suicidal ideation with a plan to jump off the bridge and end his life. Patient is known to us from prior hospitalizations. She he has an extensive history of depression and polysubstance dependence. Patient reported that he has been off his medications for over 2 weeks now and relapsed on cocaine and has been using it extensively. Pt reported that he is homeless and has no place to go which is contributing to his depression. He reported low mood any [place] hopeless helpless feelings crying and weeping spells and low energy levels and recurrent suicidal thoughts and ideations. Since patient was actively suicidal and was not able to contract for safety and was posing a threat to himself it was decided to transfer him to [address] for safety concerns. Past Med Surg Social Fam HX - Past Medical History Medical history: hepatitis - Past Psychiatric History Psychiatric history: Reports: depression, prior suicide attempt, previous psychiatric hospitalization Past psychiatric history details: Patient reported 25 year history of depression. He has had multiple prior psychiatric hospitalizations. His last hospitalization at [facility] was in November 2016. Patient was following up with [facility] but has stopped going for his appointment and has been off his medications for over 2 weeks now. Patient has attempted suicide in the past by overdosing. Family psychiatric history: Yes Family Psychiatric History Details: Patient's grandfather suffers from mental illness Family History of Suicide: None - Past Surgical History Surgical History: non-contributory - Social History Smoking Status: Current every day smoker Smokeless Tobacco Status: No Alcohol use: heavy, recent Drug use: cocaine, opiates, marijuana Additional substance use detail: Patient has an extensive history of polysubstance dependence. He reported that he has been using drugs for the last 20+ years. Most recently he has been using cocaine for the last 2 months. Occupational status: unemployed Current living situation: Homeless Activity Level: Independent ambulation Recent Out of Country Travel Within the Last 8 Weeks: No Exposure or Possible Exposure to Illness During Travel: No Additional social history: Patient is single and unemployed and is homeless. He is awaiting disability. He has 1 daughter from a previous relationship. He is currently on probation. Medications & Allergies BuPROPion SR (12 HR) [Wellbutrin SR] 100 mg PO BID 03/26/17 [History] Buspirone HCl [Buspar] 10 mg PO TID 03/26/17 [History] Omeprazole [PriLOSEC] 20 mg PO DAILY 03/26/17 [History] Quetiapine Fumarate [Seroquel] 600 mg PO HS 03/26/17 [History] Sertraline [Zoloft] 100 mg PO DAILY 03/26/17 [History] Allergies Penicillins Allergy (Verified 12/02/16 06:35) Hives Review of Systems Psychiatric: Reports: depression, abnormal sleep pattern, suicidal ideation, change in appetite, anhedonia, difficulty concentrating, hopelessness Mental Status Exam Patient orientation: Yes Person, Yes Time, Yes Place Level of alertness: Sedated Patient appearance: Unkempt, Disheveled Behavior: withdrawn Psychomotor activity: Slowed Eye contact: Minimal Contact Mood description: Depressed Affect description: blunted, flat, dysphoric Speech pattern: Slowed, Delayed Speech volume: Soft/Quiet Thought process: Logical, Linear Thought content: Yes Suicidal ideation Perceptual disturbances: No Auditory hallucinations, No Visual hallucinations Attention span: Capable of Focused Attention Memory description: Grossly Intact Patient reliability: Reliable Historian Intelligence estimate: Average Judgment: Limited Insight: Minimal Exam - HEENT Head exam IM: Present: normal inspection Eye exam IM: Present: normal appearance ENT exam IM: Present: mucous membranes moist, normal exam - Neurological Neurological exam IM: Present: alert, CN II-XII intact, normal gait, oriented X3 - Respiratory Respiratory exam IM: Absent: accessory muscle use, chest wall tenderness, decreased breath sounds, prolonged expiratory phase, rales, respiratory distress - GI/Abdominal GI/Abdominal exam IM: Present: normal bowel sounds, soft. Absent: tenderness - Extremities Extremities exam IM: Present: full ROM, normal inspection. Absent: calf tenderness, joint swelling - Skin Skin exam IM: Present: intact Results - Vital Signs Vital signs: Temp Pulse Resp BP 98 F 75 16 114/73 03/26/17 09:00 03/26/17 09:00 03/26/17 09:00 03/26/17 09:00 Assessment and Plan (1) Substance or medication-induced depressive disorder Current visit: No Status: Acute Plan: Admit inpatient for safety and stabilization, Close observation, Suicide Precautions per unit protocol, Encourage participation in unit milieu, Group Therapy, Monitor sleep, Monitor appetite Additional Plan: Patient will be restarted on Zoloft Wellbutrin and Seroquel as patient reported benefit from this combination. Patient's noncompliance will be addressed during his hospital stay and will be encouraged to adhere to treatment plan upon discharge. Risks, benefits, side effects, alternatives discussed w/pt: Yes Patient agreeable to treatment: Yes Plans for Post Hospital Care: Transfer Other (2) Polysubstance abuse Current visit: Yes Status: Acute Plan: Admit inpatient for safety and stabilization, Close observation Additional Plan: Patient will be counseled extensively regarding his drug use and the psychological and physiological impact and will be helped to identify triggers and develop relapse prevention plan Risks, benefits, side effects, alternatives discussed w/pt: Yes Patient agreeable to treatment: Yes Plans for Post Hospital Care: Transfer Other
[2017-03-27] MEDS: BuPROPion SR (12 HR) 150 MG TABLET PO SCH (09:06)
--- NOTE | 2017-03-27 14:07 | Psychiatry Progress Note ---
Date of Encounter: 03/27/17 Time of Encounter: 14:00 Subjective Interval history: Patient is seen for follow-up. Nursing staff reported he is seclusive to his room and not participating and activities groups. He is not motivated to look for rehabilitation program, he was encouraged to make phone calls. When I asked him about previous admission in november he states he cannot remember being in the hospital and he cannot remember his follow-up at that time. He continued to endorse suicidal ideation on assessments reports. His medication would be verified and established. Review of Systems Psychiatric: Reports: depression, abnormal sleep pattern, suicidal ideation, change in appetite, anhedonia, difficulty concentrating, hopelessness Objective: Exam Patient orientation: Yes Person, Yes Time, Yes Place Level of alertness: Alert Patient appearance: Appropriate, Disheveled, Thin Behavior: cooperative, anxious Psychomotor activity: Increased Eye contact: Minimal Contact Mood description: Anxious Affect description: congruent with mood, constricted, dysphoric Speech pattern: Normal rate, Normal rhythm, Normal tone Speech volume: Normal Thought process: Linear, Goal Oriented, Evasive Thought content: Yes Suicidal ideation, No Homicidal ideation, No Overt delusions Perceptual disturbances: No Auditory hallucinations, No Visual hallucinations Judgment: Fair Insight: Partial Results - Vital Signs Vital Signs: Temp Pulse Resp BP 97.6 F 66 16 104/67 03/27/17 09:00 03/27/17 09:00 03/27/17 09:00 03/27/17 09:00 Assessment and Plan (1) Substance or medication-induced depressive disorder Current visit: No Status: Acute Plan: Continue hospitalization, Close observation, Suicide Precautions per unit protocol, Encourage participation in unit milieu, Group Therapy, Monitor sleep, Monitor appetite Risks, benefits, side effects, alternatives discussed w/pt: Yes Patient agreeable to treatment: Yes (2) Polysubstance dependence including opioid drug with daily use Current visit: No Status: Acute Plan: Continue hospitalization, Close observation, Suicide Precautions per unit protocol, Encourage participation in unit milieu, Group Therapy, Monitor sleep, Monitor appetite
[2017-03-28] MEDS: BuPROPion SR (12 HR) 150 MG TABLET PO SCH (09:20)
[2017-03-28] MEDS: hydrOXYzine pamoate 25 MG CAPSULE PO PRN (13:44)
--- NOTE | 2017-03-28 16:09 | Psychiatry Progress Note ---
Date of Encounter: 03/28/17 Time of Encounter: 15:20 Subjective Interval history: Patient is seen for follow-up. He is refusing to participate in any activities or groups seclusive to his room, irritable and easily agitated and continued to make suicidal statements on nursing assessments. He is uncooperative and defiant, he did not endorse any treatment goals or safety plan. Placement efforts by the social services technician has not been successful due to patient past history of noncompliance. He is argumentative and demanding to stay in the hospital at the same time he is not participating in treatment. Review of Systems Psychiatric: Reports: depression, abnormal sleep pattern, suicidal ideation, change in appetite, anhedonia, difficulty concentrating, hopelessness Objective: Exam Patient orientation: Yes Person, Yes Time, Yes Place Level of alertness: Alert Patient appearance: Appropriate, Well Groomed Behavior: calm, cooperative, anxious, hostile, uncooperative Psychomotor activity: Normal Eye contact: Maintains Eye Contact Mood description: Euthymic/stable, Anxious, Labile, Irritable Affect description: congruent with mood, labile Speech pattern: Normal rate, Normal rhythm, Normal tone Speech volume: Normal Thought process: Linear, Goal Oriented Thought content: Yes Suicidal ideation, No Homicidal ideation, No Overt delusions Perceptual disturbances: No Auditory hallucinations, No Visual hallucinations Judgment: Fair Insight: Partial Results - Vital Signs Vital Signs: Temp Pulse Resp BP 98 F 83 16 114/77 03/28/17 08:54 03/28/17 08:54 03/28/17 08:54 03/28/17 08:54 Assessment and Plan (1) Substance or medication-induced depressive disorder Current visit: No Status: Acute Plan: Continue hospitalization, Close observation, Suicide Precautions per unit protocol, Encourage participation in unit milieu, Group Therapy, Monitor sleep, Monitor appetite Risks, benefits, side effects, alternatives discussed w/pt: Yes Patient agreeable to treatment: Yes (2) Polysubstance dependence including opioid drug with daily use Current visit: No Status: Acute Plan: Continue hospitalization, Close observation, Suicide Precautions per unit protocol, Encourage participation in unit milieu, Group Therapy, Monitor sleep, Monitor appetite Risks, benefits, side effects, alternatives discussed w/pt: Yes Patient agreeable to treatment: No Consult Discharge Plan - Plan Referrals: NO,PCP [Primary Care Provider] -
[2017-03-29 08:13] VITALS: BP 106/67
[2017-03-29] MEDS: BuPROPion SR (12 HR) 150 MG TABLET PO SCH (08:30)
--- NOTE | 2017-03-29 11:38 | Discharge Summary ---
Date of Encounter: 03/29/17 Time of Encounter: 11:31 Diagnosis - Discharge Diagnosis (1) Substance or medication-induced depressive disorder Status: Acute (2) Polysubstance dependence including opioid drug with daily use Status: Acute Medications - Discharge Medications Prescriptions: BuPROPion SR (12 HR) [Wellbutrin SR] 150 mg PO DAILY #30 tablet.er Quetiapine Fumarate [Seroquel] 600 mg PO HS #90 tablet Sertraline [Zoloft] 100 mg PO DAILY #30 tablet Buspirone HCl [Buspar] 10 mg PO TID 03/26/17 [History] Omeprazole [PriLOSEC] 20 mg PO DAILY 03/26/17 [History] BuPROPion SR (12 HR) [Wellbutrin SR] 150 mg PO DAILY #30 tablet.er 03/29/17 [Rx] Quetiapine Fumarate [Seroquel] 600 mg PO HS #90 tablet 03/29/17 [Rx] Sertraline [Zoloft] 100 mg PO DAILY #30 tablet 03/29/17 [Rx] Allergies Penicillins Allergy (Verified 12/02/16 06:35) Hives Provider Date of admission: 03/25/17 20:49 Primary care physician: PCP NO Discharging clinician: Haseeb Haynes Assessment and Plan - Patient/Caregiver Discharge Instructions Activity: resume usual activities as tolerated Diet: regular diet - Follow up Plan Follow up with: [facility] [Outside] (An appointment cannot be scheduled for you at [facility] until your case has been transferred from the [facility]. [facility] staff will completed the transfer. Please contact [facility] at [phone] on 03/31/2017 to schedule an appointment. ) [facility] [Outside] - 04/10/17 8:45 am (The above appointment is with Dr. Catalan. After you see Dr. Catalan, you will also see Augustina, [place], in the same office. Please bring the following items with you : insurance card (if you do not have insurance bring proof of income to apply for the sliding fee scale), photo ID, and any medication you take in the original bottles. If you are unable to bring these items, your appointment will be rescheduled. If you are unable to keep this appointment, 24 hour business notice of cancellation is expected. If you miss your new patient appointment, you cannot be re-scheduled in this practice for 3 months. This practice does not prescribe narcotics or see [facility] benefit recipients. ) Functional capacity at discharge: independent ambulation Overall status at discharge: Stable Disposition: Home, Self-Care Hospital Course Hospital course: Mr. Richardson is a 42 year old male admitted for suicidal ideation and substance abuse. For details of the admission please see H&P On the units patient was restarted on his medication, he was seclusive to his room and refused to participate in activities, he was irritable and endorsing suicidal ideation. Patient is homeless and demanding that director social find placement for him that was very challenging because patient previous history of noncompliance and leaving facilities AGAINST MEDICAL ADVICE. Patient was confronted about his behavior and lack of effort in helping himself. Patient started taking his medication as prescribed and participated and in some groups. Prior to discharge patient was medically stable, denies suicidal ideation and his discharge plans were completed by the director social including follow-up appointments. - Time Spent with Patient Total time spent providing and/or coordinating discharge services: Less than 30 minutes Quality - Multiple Antipsychotics Patient discharged on 2 or more antipsychotic medications: No Procedures - Procedures Procedures: Medication Management, Crisis Stabilization, Supportive Therapy, Group Therapy, Psychoeducational Therapy Mental Status Exam - Mental Status Exam Patient orientation: Yes Person, Yes Time, Yes Place Level of alertness: Alert Patient appearance: Appropriate, Well Groomed Behavior: calm, cooperative Psychomotor activity: Normal Eye contact: Minimal Contact Mood description: Euthymic/stable Affect description: congruent with mood, constricted Speech pattern: Normal rate, Normal rhythm, Normal tone Speech Volume: Normal Thought process: Linear, Goal Oriented Thought Content: No Suicidal ideation, No Homicidal ideation, No Overt delusions Perceptual Disturbances: No Auditory hallucinations, No Visual hallucinations Judgment: Limited Insight: Partial
[2017-03-29] MEDS: hydrOXYzine pamoate 25 MG CAPSULE PO PRN (16:05)
== END 2017-03-29 17:30 | disposition home or self-care (01) | DRG 754 ==
LOC: SUATTDRO 20:49 → 1ANU 20:49
PROVIDERS: ADMIT Psychiatry & Neurology Psychiatry; ATTEND Psychiatry & Neurology Psychiatry

== ENCOUNTER 2017-04-08 14:02 | Inpatient (IN) ==
--- NOTE | 2017-04-08 14:37 | Emergency Department Note ---
Disposition Clinical Impression: Depression with suicidal ideation, Polysubstance abuse, Alcoholism with alcohol dependence, Medical clearance for psychiatric admission Disposition: Admitted As Inpatient Referrals: NO,PCP [Primary Care Provider] - Forms: ED Satisfaction Letter Psych HPI - General Chief Complaint: ED Psychiatric Symptoms Stated Complaint: SI Time Seen by Provider: 04/08/17 14:17 Source: patient Mode of arrival: ambulatory Limitations: no limitations Nursing Notes Reviewed: Yes Vital Signs Reviewed: Yes - History of Present Illness HPI Narrative: 42-year-old male presents for chief complaint of suicidal ideation and suicide attempt 3 days ago with 3300 mg gabapentin tablets. He states that he went to sleep for a long time and woke up feeling terrible. He states that he has continued suicidal thoughts and thoughts of harming himself by taking pills. He denies compliance with his medication. He denies any recent illness or injury. He does admit to recent crack cocaine use by IV and smoked routes. States that he would like to be admitted for his poorly controlled psychiatric disease and drug abuse. - Related Data Home Medications Medication Instructions Recorded Confirmed Omeprazole [PriLOSEC] 20 mg PO DAILY 03/26/17 04/08/17 Previous Rx's Medication Instructions Recorded BuPROPion SR (12 HR) [Wellbutrin 150 mg PO DAILY #30 tablet.er 03/29/17 SR] Quetiapine Fumarate [Seroquel] 600 mg PO HS #90 tablet 03/29/17 Sertraline [Zoloft] 100 mg PO DAILY #30 tablet 03/29/17 Allergies Allergy/AdvReac Type Severity Reaction Status Date / Time Penicillins Allergy Hives Verified 12/02/16 06:35 All systems ED: reviewed and negative except as stated. Past Medical History - Past Medical History Attestation: Yes The following information was validated with the patient. Source: patient Medical history: Reports: arthritis, hepatitis Surgical history: Reports: no surgical history Psychiatric history: Reports: bipolar, depression, prior suicide attempt, previous psychiatric hospitalization - Social History Smoking Status: Current some day smoker Smokeless Tobacco Status: No Alcohol use: Reports: occasionally, recent Drug use: Reports: cocaine, opiates, marijuana, IVDU Physical Exam - Head Head exam: atraumatic, normocephalic, normal inspection - Eye Eye exam: Present: normal appearance, PERRL, EOMI - ENT ENT exam: normal exam, normal oropharynx, mucous membranes moist - Neck Neck exam: Present: normal inspection, full ROM, trachea midline - Chest Chest inspection: Present: normal inspection, symmetric chest wall rise - Respiratory Respiratory exam: Clear to auscultation bilaterally without wheezes rales or rhonchi Cardiovascular Cardiovascular exam: Present: regular rate, normal rhythm, normal heart sounds - Abdominal Exam Abdominal exam: Present: soft, Non-Tender. Absent: tenderness, distention, guarding, rebound, rigidity - Extremities Exam Extremities exam: Present: normal inspection, full ROM - Expanded Lower Extremity Exam Hip/Pelvis exam: Present: normal inspection, full ROM - Back Exam Back exam: Present: normal inspection, full ROM. Absent: tenderness, CVA tenderness (R), CVA tenderness (L) - Neurological Exam Neurological exam: Present: alert, oriented X3, CN II-XII intact - Psychiatric Psychiatric exam: Blunted affect. - Skin Skin exam: Present: warm, dry, intact, normal color - General Limitations: no limitations General appearance: alert Course - Reevaluation(s) Reevaluation #1: Patient stable. He was seen by psychiatric nurse who recommends admission, but we do not have any beds available at this time. We are awaiting placement. Time: 22:27 Reevaluation #2: Pt signed out to Dr. Lima pending placement. Time: 23:21 Vital Signs Temperature 98.2 F 04/08/17 14:03 Pulse Rate 71 04/08/17 14:03 Respiratory Rate 16 04/08/17 14:03 Blood Pressure 116/77 04/08/17 14:03 O2 Sat by Pulse Oximetry 97 04/08/17 14:03 Temperature 98.2 F 04/08/17 14:03 Pulse Rate 71 04/08/17 14:03 Respiratory Rate 16 04/08/17 14:03 Blood Pressure 116/77 04/08/17 14:03 O2 Sat by Pulse Oximetry 97 04/08/17 14:03 Oxygen Delivery Oxygen Delivery Room Air Psych - Lab Data Result diagrams: 04/08/17 14:46 04/08/17 14:46 Lab Results 04/08/17 04/08/17 04/08/17 Range/Units 14:20 14:20 14:46 WBC 8.3 (4.3-11.1) K/mcL RBC 4.93 (4.19-5.50) M/mcL Hgb 15.3 (12.9-16.9) g/dL Hct 45.8 (37.5-50.1) % MCV 92.9 (83.0-100.0) fL MCH 31.0 (28.0-33.3) pg MCHC 33.4 (31.6-35.5) g/dL RDW 12.6 (11.5-14.5) % Plt Count 285 (140-400) K/mcL MPV 9.2 L (9.4-12.4) fL Immature Gran % 0.1 (0-4) % Seg Neutrophils % 43.3 % Lymphocytes % 35.8 % Monocytes % 8.3 % Eosinophils % 11.3 % Basophils % 1.2 % Neutrophils # 3.6 (1.6-8.9) K/mcL Lymphocytes # 3.0 (0.6-4.6) K/mcL Monocytes # 0.7 (0.0-1.3) K/mcL Eosinophils # 0.9 H (0.0-0.6) K/mcL Basophils # 0.1 (0.0-0.2) K/mcL Sodium (136-145) mEq/L Potassium (3.5-4.5) mEq/L Chloride (98-109) mEq/L Carbon Dioxide (19-29) mEq/L BUN (8-26) mg/dL Creatinine (0.72-1.25) mg/dL Est GFR ( Amer) (> 60) Est GFR (Non-Af Amer) (> 60) BUN/Creatinine Ratio (6-26) Glucose (70-99) mg/dL Calculated Osmolality (280-300) Calcium (8.6-10.8) mg/dL Urine Color Yellow (Yellow) Urine Clarity Clear (Clear) Urine pH 6.5 (5.0-8.0) pH Units Ur Specific [place] 1.014 (1.010-1.025) Urine Protein Negative (Neg-Trace) mg/dL Urine Glucose (UA) Normal (Normal) mg/dL Urine Ketones Negative (Negative) mg/dL Urine Blood Negative (Negative) Urine Nitrite Negative (Negative) Urine Bilirubin Negative (Negative) Urine Urobilinogen Normal (Normal) mg/dL Ur Leukocyte Esterase Negative (Negative) Salicylates (15-30) mg/dL Urine Opiates Screen Negative (Upxgvu=928) ng/mL Acetaminophen (10-30) mcg/mL Ur Barbiturates Screen Negative (Pbyopn=009) ng/mL Ur Phencyclidine Scrn Negative (Cutoff=25) ng/mL Ur Amphetamines Screen Negative (Uvwnkf=1613) ng/mL U Benzodiazepines Scrn Negative (Apfsta=927) ng/mL Urine Cocaine Screen Positive H (Cutoff= 300) ng/mL U Marijuana (THC) Screen Negative (Cutoff = 50) ng/mL Ethyl Alcohol (0-10) mg/dL 04/08/17 Range/Units 14:46 WBC (4.3-11.1) K/mcL RBC (4.19-5.50) M/mcL Hgb (12.9-16.9) g/dL Hct (37.5-50.1) % MCV (83.0-100.0) fL MCH (28.0-33.3) pg MCHC (31.6-35.5) g/dL RDW (11.5-14.5) % Plt Count (140-400) K/mcL MPV (9.4-12.4) fL Immature Gran % (0-4) % Seg Neutrophils % % Lymphocytes % % Monocytes % % Eosinophils % % Basophils % % Neutrophils # (1.6-8.9) K/mcL Lymphocytes # (0.6-4.6) K/mcL Monocytes # (0.0-1.3) K/mcL Eosinophils # (0.0-0.6) K/mcL Basophils # (0.0-0.2) K/mcL Sodium 138 (136-145) mEq/L Potassium 4.6 H (3.5-4.5) mEq/L Chloride 102 (98-109) mEq/L Carbon Dioxide 28 (19-29) mEq/L BUN 7 L (8-26) mg/dL Creatinine 1.05 (0.72-1.25) mg/dL Est GFR ( Amer) > 60 (> 60) Est GFR (Non-Af Amer) > 60 (> 60) BUN/Creatinine Ratio 7 (6-26) Glucose 90 (70-99) mg/dL Calculated Osmolality 284 (280-300) Calcium 9.7 (8.6-10.8) mg/dL Urine Color (Yellow) Urine Clarity (Clear) Urine pH (5.0-8.0) pH Units Ur Specific [place] (1.010-1.025) Urine Protein (Neg-Trace) mg/dL Urine Glucose (UA) (Normal) mg/dL Urine Ketones (Negative) mg/dL Urine Blood (Negative) Urine Nitrite (Negative) Urine Bilirubin (Negative) Urine Urobilinogen (Normal) mg/dL Ur Leukocyte Esterase (Negative) Salicylates < 5.0 L (15-30) mg/dL Urine Opiates Screen (Ppppde=592) ng/mL Acetaminophen < 1.0 L (10-30) mcg/mL Ur Barbiturates Screen (Nggork=814) ng/mL Ur Phencyclidine Scrn (Cutoff=25) ng/mL Ur Amphetamines Screen (Dlkukm=7967) ng/mL U Benzodiazepines Scrn (Xlpkzb=073) ng/mL Urine Cocaine Screen (Cutoff= 300) ng/mL U Marijuana (THC) Screen (Cutoff = 50) ng/mL Ethyl Alcohol < 10 (0-10) mg/dL Psychiatric Medical Clearance - Medical Clearance Checklist Medical History: No Social History Section defined Current Vitals: Last Vital Signs Temp 98.2 F 04/08/17 14:03 Pulse 71 04/08/17 14:03 Resp 16 04/08/17 14:03 BP 116/77 04/08/17 14:03 Pulse Ox 97 04/08/17 14:03 Psychiatric Lab Panel: Drug Levels and Toxicity 04/08/17 04/08/17 14:20 14:46 Urine Opiates Screen Negative Acetaminophen < 1.0 L Ur Barbiturates Screen Negative Ur Phencyclidine Scrn Negative Ur Amphetamines Screen Negative U Benzodiazepines Scrn Negative Urine Cocaine Screen Positive H U Marijuana (THC) Screen Negative Ethyl Alcohol < 10 Abnormal Labs: Abnormal lab results MPV 9.2 fL (9.4-12.4) L 04/08/17 14:46 Eosinophils # 0.9 K/mcL (0.0-0.6) H 04/08/17 14:46 Potassium 4.6 mEq/L (3.5-4.5) H 04/08/17 14:46 BUN 7 mg/dL (8-26) L 04/08/17 14:46 Salicylates < 5.0 mg/dL (15-30) L 04/08/17 14:46 Acetaminophen < 1.0 mcg/mL (10-30) L 04/08/17 14:46 Urine Cocaine Screen Positive ng/mL (Cutoff= 300) H 04/08/17 14:20 Statement of Medical Clearance: I have evaluated the patient, reviewed diagnostic information, and certify that the patient's medical condition is sufficiently stable that transfer to the psychiatric unit does not pose a significant risk of deterioration. Attestation Statement - Attestation Attestation: I personally interviewed and examined this patient and my medical decision- making was reviewed with the ED Resident Physician, Dr. Loyd. I agree with the documented findings, disposition and treatment plan as described except to the extent set forth below. Patient is a 42-year-old white male, history of polysubstance abuse and alcoholism, who presents to the emergency department with complaints of increased depression and suicidal ideation with plan. Patient states he was just hospitalized for depression and suicidal ideation 30 days ago here at [facility]. Patient was supposed to follow up on an outpatient basis for counseling as well as substance abuse counseling which patient reports has not started yet. Patient admits to heroin use and states that that is his plan for suicide he plans to inject heroin. Patient took an overdose of Neurontin 72 hours ago, reported to me that he took 30 tablets of 300 mg Neurontin tabs at one time. Patient reports that he fell asleep, had no vomiting, and awoke the next day after leaving a suicide note for his father. Patient denies any nausea vomiting , no abdominal pain, no chest pain or back pain, no urinary symptoms or bowel changes. Patient denies ingesting any other substances in large quantities prior to arrival to the ED today. Patient also states that he is an alcoholic in the last week he had was yesterday in the afternoon, consuming 2 beers. Patient's physical exam accurate as documented. Plan will be to medically evaluate the patient, including lab evaluation and if patient's labs are normal will consult one A to come and evaluate the patient for suicidal ideation. Patient was placed on suicide precautions and is being currently monitored. Patient to be admitted to [facility], medically clear for psychiatric evaluation and treatment. There are no beds available so patient will remain in the ER. [place] slip signed and placed on chart
[2017-04-08 14:50] LABS: Bilirubin,Urine Negative (Negative); Blood,Urine Negative (Negative); Color,Urine Yellow (Yellow); Glucose,Urine (UA) Normal (Normal); Ketones,Urine Negative (Negative); Leukocyte Esterase,Urine Negative (Negative); Nitrite,Urine Negative (Negative); PH,Urine 6.5 pH Units (5.0-8.0); Protein,Urine Negative (Neg-Trace); Specific Gravity,Urine 1.014 (1.010-1.025); Urobilinogen,Urine Normal (Normal)
[2017-04-08 14:53] LABS: Basophils # 0.1 K/mcL (0.0-0.2); Basophils % 1.2 %; Eosinophils # 0.9 K/mcL (0.0-0.6); Eosinophils % 11.3 %; Hematocrit 45.8 % (37.5-50.1); Hemoglobin 15.3 g/dL (12.9-16.9); Immature Granulocytes % 0.1 % (0-4); Lymphocytes % 35.8 %; Mean Corpuscular HGB Conc 33.4 g/dL (31.6-35.5); Mean Corpuscular Volume 92.9 fL (83.0-100.0); Mean Platelet Volume 9.2 fL (9.4-12.4); Monocytes # 0.7 K/mcL (0.0-1.3); Monocytes % 8.3 %; Neutrophils # 3.6 K/mcL (1.6-8.9); Platelet Count 285 K/mcL (140-400); Red Blood Count 4.93 M/mcL (4.19-5.50); Red Cell Distribution Width 12.6 % (11.5-14.5); Segmented Neutrophils % 43.3 %
[2017-04-08 14:53] LABS: Clarity,Urine Clear (Clear)
[2017-04-08 14:56] LABS: Amphetamine Screen,Urine Negative ng/mL (Cutoff=1000); Barbiturate Screen,Urine Negative ng/mL (Cutoff=200); Benzodiazepines Screen,Urine Negative ng/mL (Cutoff=200); Cannabinoid Screen,Urine Negative ng/mL (Cutoff = 50); Cocaine Screen,Urine Positive ng/mL (Cutoff= 300); Opiate Screen,Urine Negative ng/mL (Cutoff=300); Phencyclidine Screen,Urine Negative ng/mL (Cutoff=25)
[2017-04-08 15:06] LABS: BUN/Creatinine Ratio 7 (6-26); Blood Urea Nitrogen 7 mg/dL (8-26); Calcium 9.7 mg/dL (8.6-10.8); Carbon Dioxide 28 mEq/L (19-29); Chloride 102 mEq/L (98-109); Glucose 90 mg/dL (70-99); Osmolality,Calculated 284 (280-300); Potassium 4.6 mEq/L (3.5-4.5); Sodium 138 mEq/L (136-145); eGFR For African Americans > 60 (> 60); eGFR For Non-African Americans > 60 (> 60)
[2017-04-08 15:08] LABS: Acetaminophen < 1.0 mcg/mL (10-30); Ethanol < 10 mg/dL (0-10); Salicylate < 5.0 mg/dL (15-30)
--- NOTE | 2017-04-09 06:27 | Emergency Department Note ---
START Narrative - START START: Emergency department progress note This patient was signed out at shift change from Dr. Loyd and Dr. Heidi collins. Patient presented with suicidal ideation. He was medically cleared and evaluated by the psychiatry service. He is currently awaiting bed placement. 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 [facility], Dr[facility] Castillo.
[2017-04-09] MEDS ORDERED: traZODone 50 MG TABLET PO PRN (14:45)
[2017-04-09] MEDS ORDERED: Mag Hydrox/Al Hydrox/Simeth 30 ML UDC PO PRN (14:45)
[2017-04-09] MEDS ORDERED: hydrOXYzine pamoate 25 MG CAPSULE PO PRN (14:45)
[2017-04-09] MEDS ORDERED: Ibuprofen 400 MG TABLET PO PRN (14:45)
[2017-04-09] MEDS ORDERED: MOM Conc 10 ML UD.LIQ PO PRN (14:45)
[2017-04-09] MEDS ORDERED: *HR* LORazepam 2 MG/ML VIAL IM PRN (14:45)
[2017-04-09] MEDS ORDERED: *HR* LORazepam 1 MG TABLET PO PRN (14:45)
[2017-04-09] MEDS ORDERED: Haloperidol Lactate 5 MG/ML VIAL IM PRN (14:45)
--- NOTE | 2017-04-09 18:23 | Emergency Department Note ---
Disposition Clinical Impression: Depression with suicidal ideation, Polysubstance abuse, Medical clearance for psychiatric admission Alcoholism with alcohol dependence Qualifiers: Substance use status: unspecified alcohol-induced disorder Qualified Code(s): F10.29 - Alcohol dependence with unspecified alcohol-induced disorder Disposition: Admitted As Inpatient Condition: Good Psych HPI - General Chief Complaint: ED Psychiatric Symptoms Stated Complaint: SI Time Seen by Provider: 04/08/17 14:17 Source: patient Mode of arrival: ambulatory Limitations: no limitations Nursing Notes Reviewed: Yes Vital Signs Reviewed: Yes - Related Data Home Medications Medication Instructions Recorded Confirmed Omeprazole [PriLOSEC] 20 mg PO DAILY 03/26/17 04/08/17 Quetiapine Fumarate [Seroquel] 200 mg PO HS 04/09/17 04/09/17 Quetiapine Fumarate [Seroquel] 400 mg PO HS 04/09/17 04/09/17 Previous Rx's Medication Instructions Recorded BuPROPion SR (12 HR) [Wellbutrin 150 mg PO DAILY #30 tablet.er 03/29/17 SR] Sertraline [Zoloft] 100 mg PO DAILY #30 tablet 03/29/17 Allergies Allergy/AdvReac Type Severity Reaction Status Date / Time Penicillins Allergy Hives Verified 12/02/16 06:35 Past Medical History - Past Medical History Medical history: Reports: arthritis, hepatitis Surgical history: Reports: other Psychiatric history: Reports: anxiety, bipolar, depression, prior suicide attempt, previous psychiatric hospitalization - Social History Smoking Status: Current some day smoker Smokeless Tobacco Status: Yes Alcohol use: Reports: occasionally, recent Drug use: Reports: cocaine, opiates, marijuana, IVDU Physical Exam - General Limitations: no limitations General appearance: alert Course Vital Signs Temperature 98.2 F 04/08/17 14:03 Pulse Rate 71 04/08/17 14:03 Respiratory Rate 16 04/08/17 14:03 Blood Pressure 116/77 04/08/17 14:03 O2 Sat by Pulse Oximetry 97 04/08/17 14:03 Temperature 97.8 F 04/09/17 15:04 Pulse Rate 63 04/09/17 15:04 Respiratory Rate 16 04/09/17 15:04 Blood Pressure 122/77 04/09/17 15:04 O2 Sat by Pulse Oximetry 98 04/09/17 09:12 Oxygen Delivery Oxygen Delivery Room Air Psych - MDM Narrative Medical decision making narrative: I, Cristi Castillo, examined this patient and my medical decision-making was reviewed with the COMMERCIAL [employer] LOAD OPERATOR/PA/Advanced Practice Nurse/Resident Physician. I agree with the documented findings, disposition and treatment plan as described except to the extent set forth below. 32-year-old male received in sign out at the start of my shift at [address] Lima pending placement for continued behavioral health evaluation and treatment. Patient reports attempting suicide with medication overdose with gabapentin 3 days ago. Patient has been incredibly in the emergency department. Patient will be admitted to at [facility] [place]. Pt is comfortable with the plan. No further concerns or complaints. - Lab Data Result diagrams: 04/08/17 14:46 04/08/17 14:46 Lab Results 04/08/17 04/08/17 04/08/17 Range/Units 14:20 14:20 14:46 WBC 8.3 (4.3-11.1) K/mcL RBC 4.93 (4.19-5.50) M/mcL Hgb 15.3 (12.9-16.9) g/dL Hct 45.8 (37.5-50.1) % MCV 92.9 (83.0-100.0) fL MCH 31.0 (28.0-33.3) pg MCHC 33.4 (31.6-35.5) g/dL RDW 12.6 (11.5-14.5) % Plt Count 285 (140-400) K/mcL MPV 9.2 L (9.4-12.4) fL Immature Gran % 0.1 (0-4) % Seg Neutrophils % 43.3 % Lymphocytes % 35.8 % Monocytes % 8.3 % Eosinophils % 11.3 % Basophils % 1.2 % Neutrophils # 3.6 (1.6-8.9) K/mcL Lymphocytes # 3.0 (0.6-4.6) K/mcL Monocytes # 0.7 (0.0-1.3) K/mcL Eosinophils # 0.9 H (0.0-0.6) K/mcL Basophils # 0.1 (0.0-0.2) K/mcL Sodium (136-145) mEq/L Potassium (3.5-4.5) mEq/L Chloride (98-109) mEq/L Carbon Dioxide (19-29) mEq/L BUN (8-26) mg/dL Creatinine (0.72-1.25) mg/dL Est GFR ( Amer) (> 60) Est GFR (Non-Af Amer) (> 60) BUN/Creatinine Ratio (6-26) Glucose (70-99) mg/dL Calculated Osmolality (280-300) Calcium (8.6-10.8) mg/dL Urine Color Yellow (Yellow) Urine Clarity Clear (Clear) Urine pH 6.5 (5.0-8.0) pH Units Ur Specific [place] 1.014 (1.010-1.025) Urine Protein Negative (Neg-Trace) mg/dL Urine Glucose (UA) Normal (Normal) mg/dL Urine Ketones Negative (Negative) mg/dL Urine Blood Negative (Negative) Urine Nitrite Negative (Negative) Urine Bilirubin Negative (Negative) Urine Urobilinogen Normal (Normal) mg/dL Ur Leukocyte Esterase Negative (Negative) Salicylates (15-30) mg/dL Urine Opiates Screen Negative (Frdcfe=706) ng/mL Acetaminophen (10-30) mcg/mL Ur Barbiturates Screen Negative (Keqkza=621) ng/mL Ur Phencyclidine Scrn Negative (Cutoff=25) ng/mL Ur Amphetamines Screen Negative (Pxhqxt=2887) ng/mL U Benzodiazepines Scrn Negative (Gyitjs=326) ng/mL Urine Cocaine Screen Positive H (Cutoff= 300) ng/mL U Marijuana (THC) Screen Negative (Cutoff = 50) ng/mL Ethyl Alcohol (0-10) mg/dL 04/08/17 Range/Units 14:46 WBC (4.3-11.1) K/mcL RBC (4.19-5.50) M/mcL Hgb (12.9-16.9) g/dL Hct (37.5-50.1) % MCV (83.0-100.0) fL MCH (28.0-33.3) pg MCHC (31.6-35.5) g/dL RDW (11.5-14.5) % Plt Count (140-400) K/mcL MPV (9.4-12.4) fL Immature Gran % (0-4) % Seg Neutrophils % % Lymphocytes % % Monocytes % % Eosinophils % % Basophils % % Neutrophils # (1.6-8.9) K/mcL Lymphocytes # (0.6-4.6) K/mcL Monocytes # (0.0-1.3) K/mcL Eosinophils # (0.0-0.6) K/mcL Basophils # (0.0-0.2) K/mcL Sodium 138 (136-145) mEq/L Potassium 4.6 H (3.5-4.5) mEq/L Chloride 102 (98-109) mEq/L Carbon Dioxide 28 (19-29) mEq/L BUN 7 L (8-26) mg/dL Creatinine 1.05 (0.72-1.25) mg/dL Est GFR ( Amer) > 60 (> 60) Est GFR (Non-Af Amer) > 60 (> 60) BUN/Creatinine Ratio 7 (6-26) Glucose 90 (70-99) mg/dL Calculated Osmolality 284 (280-300) Calcium 9.7 (8.6-10.8) mg/dL Urine Color (Yellow) Urine Clarity (Clear) Urine pH (5.0-8.0) pH Units Ur Specific [place] (1.010-1.025) Urine Protein (Neg-Trace) mg/dL Urine Glucose (UA) (Normal) mg/dL Urine Ketones (Negative) mg/dL Urine Blood (Negative) Urine Nitrite (Negative) Urine Bilirubin (Negative) Urine Urobilinogen (Normal) mg/dL Ur Leukocyte Esterase (Negative) Salicylates < 5.0 L (15-30) mg/dL Urine Opiates Screen (Uusbss=636) ng/mL Acetaminophen < 1.0 L (10-30) mcg/mL Ur Barbiturates Screen (Imumts=559) ng/mL Ur Phencyclidine Scrn (Cutoff=25) ng/mL Ur Amphetamines Screen (Kigvni=4292) ng/mL U Benzodiazepines Scrn (Copdga=721) ng/mL Urine Cocaine Screen (Cutoff= 300) ng/mL U Marijuana (THC) Screen (Cutoff = 50) ng/mL Ethyl Alcohol < 10 (0-10) mg/dL Psychiatric Medical Clearance - Medical Clearance Checklist Medical History: No Social History Section defined Current Vitals: Last Vital Signs Temp 97.8 F 04/09/17 15:04 Pulse 63 04/09/17 15:04 Resp 16 04/09/17 15:04 BP 122/77 04/09/17 15:04 Pulse Ox 98 04/09/17 09:12 Abnormal Labs: Abnormal lab results MPV 9.2 fL (9.4-12.4) L 04/08/17 14:46 Eosinophils # 0.9 K/mcL (0.0-0.6) H 04/08/17 14:46 Potassium 4.6 mEq/L (3.5-4.5) H 04/08/17 14:46 BUN 7 mg/dL (8-26) L 04/08/17 14:46 Salicylates < 5.0 mg/dL (15-30) L 04/08/17 14:46 Acetaminophen < 1.0 mcg/mL (10-30) L 04/08/17 14:46 Urine Cocaine Screen Positive ng/mL (Cutoff= 300) H 04/08/17 14:20 Statement of Medical Clearance: I have evaluated the patient, reviewed diagnostic information, and certify that the patient's medical condition is sufficiently stable that transfer to the psychiatric unit does not pose a significant risk of deterioration.
[2017-04-10] MEDS: BuPROPion SR (12 HR) 150 MG TABLET PO SCH (09:27)
--- NOTE | 2017-04-10 11:52 | Psychiatry History & Physical ---
Date of Encounter: 04/10/17 Time of Encounter: 11:48 History of Present Illness Patient Stated Chief Complaint: Depression and suicidal ideation Medicare Admission Attestation: For traditional Medicare patients the provided hospital inpatient services are reasonable and necessary and in the case of services not specified as inpatient -only under 42 CFR 419.22 (n), that they are appropriately provided as inpatient services in accordance 42 CFR 412.3. For [facility] the patient may reasonably be expected to be discharged or transferred to a hospital within 96 hours after admission to the Critical [facility]. Admitted From: Emergency Dept History of Present Illness: Mr. Richardson is a 42 year old male admitted from the emergency room for depression and suicidal ideation. Patient also was positive for cocaine. Patient was recently discharged on 03/29/2017 with plans for outpatient services and rehabilitation placement. The patient started using cocaine again and has not been compliant with his medication and presented to the emergency room complaining of depression and suicidal ideation. Patient has a long history of substance abuse and noncompliance with treatment. He is hoping to be placed in rehabs to address his substance dependence. 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 Past Med Surg Social Fam HX - Past Medical History Medical history: arthritis, hepatitis - Past Psychiatric History Psychiatric history: Reports: depression, prior suicide attempt, previous psychiatric hospitalization Past psychiatric history details: Recently discharged from the unit on 03/30/2017 - Past Surgical History Surgical History: other - Social History Smoking Status: Current some day smoker Smokeless Tobacco Status: Yes Alcohol use: occasionally, recent Drug use: cocaine, opiates, marijuana, IVDU Medications & Allergies Omeprazole [PriLOSEC] 20 mg PO DAILY 03/26/17 [History] BuPROPion SR (12 HR) [Wellbutrin SR] 150 mg PO DAILY #30 tablet.er 03/29/17 [Rx] Sertraline [Zoloft] 100 mg PO DAILY #30 tablet 03/29/17 [Rx] Quetiapine Fumarate [Seroquel] 200 mg PO HS 04/09/17 [History] Quetiapine Fumarate [Seroquel] 400 mg PO HS 04/09/17 [History] Allergies Penicillins Allergy (Verified 12/02/16 06:35) Hives Review of Systems Psychiatric: Reports: depression, suicidal ideation, other (Cocaine dependence) Mental Status Exam Patient orientation: Yes Person, Yes Time, Yes Place Level of alertness: Alert Patient appearance: Appropriate, Unkempt, Disheveled Behavior: cooperative, anxious, withdrawn Psychomotor activity: Slowed Eye contact: Minimal Contact Mood description: Depressed, Anxious, Irritable Affect description: congruent with mood, labile, constricted, dysphoric Speech pattern: Normal rate, Normal rhythm, Normal tone, Limited Speech volume: Normal Thought process: Linear, Goal Oriented Thought content: No Suicidal ideation, No Homicidal ideation, No Overt delusions Perceptual disturbances: No Auditory hallucinations, No Visual hallucinations Attention span: Capable of Focused Attention Memory description: Grossly Intact Patient reliability: Reliable Historian Intelligence estimate: Average Judgment: Limited Insight: Partial Results - Vital Signs Vital signs: Temp Pulse Resp BP Pulse Ox 98.4 F 94 16 113/70 98 04/10/17 09:00 04/10/17 09:00 04/10/17 09:00 04/10/17 09:00 04/09/17 09:12 - Labs Labs: Laboratory Last Values WBC 8.3 K/mcL (4.3-11.1) 04/08/17 14:46 RBC 4.93 M/mcL (4.19-5.50) 04/08/17 14:46 Hgb 15.3 g/dL (12.9-16.9) 04/08/17 14:46 Hct 45.8 % (37.5-50.1) 04/08/17 14:46 MCV 92.9 fL (83.0-100.0) 04/08/17 14:46 MCH 31.0 pg (28.0-33.3) 04/08/17 14:46 MCHC 33.4 g/dL (31.6-35.5) 04/08/17 14:46 RDW 12.6 % (11.5-14.5) 04/08/17 14:46 Plt Count 285 K/mcL (140-400) 04/08/17 14:46 MPV 9.2 fL (9.4-12.4) L 04/08/17 14:46 Immature Gran % 0.1 % (0-4) 04/08/17 14:46 Seg Neutrophils % 43.3 % 04/08/17 14:46 Lymphocytes % 35.8 % 04/08/17 14:46 Monocytes % 8.3 % 04/08/17 14:46 Eosinophils % 11.3 % 04/08/17 14:46 Basophils % 1.2 % 04/08/17 14:46 Neutrophils # 3.6 K/mcL (1.6-8.9) 04/08/17 14:46 Lymphocytes # 3.0 K/mcL (0.6-4.6) 04/08/17 14:46 Monocytes # 0.7 K/mcL (0.0-1.3) 04/08/17 14:46 Eosinophils # 0.9 K/mcL (0.0-0.6) H 04/08/17 14:46 Basophils # 0.1 K/mcL (0.0-0.2) 04/08/17 14:46 Sodium 138 mEq/L (136-145) 04/08/17 14:46 Potassium 4.6 mEq/L (3.5-4.5) H 04/08/17 14:46 Chloride 102 mEq/L (98-109) 04/08/17 14:46 Carbon Dioxide 28 mEq/L (19-29) 04/08/17 14:46 BUN 7 mg/dL (8-26) L 04/08/17 14:46 Creatinine 1.05 mg/dL (0.72-1.25) 04/08/17 14:46 Est GFR ( Amer) > 60 (> 60) 04/08/17 14:46 Est GFR (Non-Af Amer) > 60 (> 60) 04/08/17 14:46 BUN/Creatinine Ratio 7 (6-26) 04/08/17 14:46 Glucose 90 mg/dL (70-99) 04/08/17 14:46 Calculated Osmolality 284 (280-300) 04/08/17 14:46 Calcium 9.7 mg/dL (8.6-10.8) 04/08/17 14:46 Urine Color Yellow (Yellow) 04/08/17 14:20 Urine Clarity Clear (Clear) 04/08/17 14:20 Urine pH 6.5 pH Units (5.0-8.0) 04/08/17 14:20 Ur Specific [place] 1.014 (1.010-1.025) 04/08/17 14:20 Urine Protein Negative mg/dL (Neg-Trace) 04/08/17 14:20 Urine Glucose (UA) Normal mg/dL (Normal) 04/08/17 14:20 Urine Ketones Negative mg/dL (Negative) 04/08/17 14:20 Urine Blood Negative (Negative) 04/08/17 14:20 Urine Nitrite Negative (Negative) 04/08/17 14:20 Urine Bilirubin Negative (Negative) 04/08/17 14:20 Urine Urobilinogen Normal mg/dL (Normal) 04/08/17 14:20 Ur Leukocyte Esterase Negative (Negative) 04/08/17 14:20 Salicylates < 5.0 mg/dL (15-30) L 04/08/17 14:46 Urine Opiates Screen Negative ng/mL (Hajnoj=626) 04/08/17 14:20 Acetaminophen < 1.0 mcg/mL (10-30) L 04/08/17 14:46 Ur Barbiturates Screen Negative ng/mL (Rhmvtk=265) 04/08/17 14:20 Ur Phencyclidine Scrn Negative ng/mL (Cutoff=25) 04/08/17 14:20 Ur Amphetamines Screen Negative ng/mL (Saoujg=2587) 04/08/17 14:20 U Benzodiazepines Scrn Negative ng/mL (Nemjxi=423) 04/08/17 14:20 Urine Cocaine Screen Positive ng/mL (Cutoff= 300) H 04/08/17 14:20 U Marijuana (THC) Screen Negative ng/mL (Cutoff = 50) 04/08/17 14:20 Ethyl Alcohol < 10 mg/dL (0-10) 04/08/17 14:46 Assessment and Plan (1) Substance or medication-induced depressive disorder Current visit: No Status: Acute Plan: Admit inpatient for safety and stabilization, Close observation, Suicide Precautions per unit protocol, Encourage participation in unit milieu, Group Therapy, Monitor sleep, Monitor appetite Additional Plan: Restart medication and discharge planning was placement and drug rehabilitation. Risks, benefits, side effects, alternatives discussed w/pt: Yes Patient agreeable to treatment: Yes Estimated Length of Stay (Days): 3 (2) Polysubstance dependence including opioid drug with daily use Current visit: No Status: Acute Plan: Admit inpatient for safety and stabilization, Close observation, Suicide Precautions per unit protocol, Encourage participation in unit milieu, Group Therapy, Monitor sleep, Monitor appetite Risks, benefits, side effects, alternatives discussed w/pt: Yes Patient agreeable to treatment: Yes
[2017-04-11] MEDS: BuPROPion SR (12 HR) 150 MG TABLET PO SCH (09:07)
--- NOTE | 2017-04-11 16:12 | Psychiatry Progress Note ---
Date of Encounter: 04/11/17 Time of Encounter: 16:00 Subjective Interval history: Patient is here for follow-up.he continued to endorse suicidal ideation to his behavior and more is not suggestive of depression. He was attending groups or activities and with him for placement. 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 Review of Systems Psychiatric: Reports: depression, suicidal ideation, other (Cocaine dependence) Objective: Exam Patient orientation: Yes Person, Yes Time, Yes Place Level of alertness: Alert Patient appearance: Appropriate, Disheveled Behavior: cooperative, anxious, guarded Psychomotor activity: Increased Eye contact: Minimal Contact Mood description: Euthymic/stable, Labile, Irritable Affect description: congruent with mood, euthymic, anxious Speech pattern: Normal rate, Normal rhythm, Normal tone Speech volume: Normal Thought process: Linear, Goal Oriented Thought content: Yes Suicidal ideation, No Homicidal ideation, No Overt delusions Perceptual disturbances: No Auditory hallucinations, No Visual hallucinations Judgment: Fair Insight: Partial Results - Vital Signs Vital Signs: Temp Pulse Resp BP Pulse Ox 98.3 F 81 16 104/67 98 04/11/17 09:00 04/11/17 09:00 04/11/17 09:00 04/11/17 09:00 04/09/17 09:12 Assessment and Plan (1) Substance or medication-induced depressive disorder Current visit: No Status: Acute Risks, benefits, side effects, alternatives discussed w/pt: Yes Patient agreeable to treatment: Yes (2) Polysubstance dependence including opioid drug with daily use Current visit: No Status: Acute Risks, benefits, side effects, alternatives discussed w/pt: Yes Patient agreeable to treatment: Yes Consult Discharge Plan - Plan Referrals: NO,PCP [Primary Care Provider] -
[2017-04-12 08:53] VITALS: BP 110/70
[2017-04-12] MEDS: BuPROPion SR (12 HR) 150 MG TABLET PO SCH (09:02)
--- NOTE | 2017-04-12 14:36 | Discharge Summary ---
Date of Encounter: 04/12/17 Time of Encounter: 14:30 Diagnosis - Discharge Diagnosis (1) Substance or medication-induced depressive disorder Status: Acute (2) Polysubstance dependence including opioid drug with daily use Status: Acute Medications - Discharge Medications Omeprazole [PriLOSEC] 20 mg PO DAILY 03/26/17 [History] BuPROPion SR (12 HR) [Wellbutrin SR] 150 mg PO DAILY #30 tablet.er 03/29/17 [Rx] Sertraline [Zoloft] 100 mg PO DAILY #30 tablet 03/29/17 [Rx] Quetiapine Fumarate [Seroquel] 200 mg PO HS 04/09/17 [History] Quetiapine Fumarate [Seroquel] 400 mg PO HS 04/09/17 [History] Allergies Penicillins Allergy (Verified 12/02/16 06:35) Hives Provider Date of admission: 04/09/17 14:18 Primary care physician: PCP NO Consults: 04/09/17 15:41 Consult to Pastoral Services [CONS] Routine Comment: Discharging clinician: Haseeb Haynes Assessment and Plan - Patient/Caregiver Discharge Instructions Activity: resume usual activities as tolerated Diet: regular diet - Follow up Plan Follow up with: [facility] [Outside] - 04/18/17 10:00 am (The above appointment is with Renetta for counseling. You will also see Dr. Churchill, psychiatrist, on 2016 at 6:00pm. You will resume groups at [facility] on discharge as well.) [facility] [Outside] - 04/20/17 9:30 am (The above appointment is with Dr. Catalan. This appointment is to establish you with a primary care provider. Please arrive 15 minutes early for your new patient appointment, and bring the following items with you: insurance card (if you do not have insurance bring proof of income to apply for the sliding fee scale), photo ID, and any medication you take in the original bottles. If you are unable to bring these items, your appointment will be rescheduled. If you are unable to keep this appointment, 24 hour business notice of cancellation is expected. If you miss your new patient appointment, you cannot be re-scheduled in this practice for 3 months. This practice does not prescribe narcotics or see [facility] benefit recipients. ) Functional capacity at discharge: independent ambulation Overall status at discharge: Stable Disposition: Home, Self-Care Hospital Course Hospital course: Mr. Richardson is a 42 year old male admitted for suicidal ideation. This is what admission please see H&P This was a rapid readmission for this patient, relapse to using cocaine after discharge and did not keep his appointments. Patient endorsed suicidal ideation on and off and prior to discharge she denied any intent to self-harm he was aware of his medication and appointments. residential program worker was able to place the patient in appropriate facility and patient was agreeable. On discharge patient was medically stable and nonsuicidal and future oriented, and interested in drug rehabilitation which will be available in 2 weeks. - Time Spent with Patient Total time spent providing and/or coordinating discharge services: Less than 30 minutes Quality - Multiple Antipsychotics Patient discharged on 2 or more antipsychotic medications: No Procedures - Procedures Procedures: Medication Management, Crisis Stabilization, Supportive Therapy, Group Therapy, Psychoeducational Therapy Mental Status Exam - Mental Status Exam Patient orientation: Yes Person, Yes Time, Yes Place Level of alertness: Alert Patient appearance: Appropriate, Well Groomed, Unkempt Behavior: calm, cooperative, guarded Psychomotor activity: Normal Eye contact: Maintains Eye Contact Mood description: Euthymic/stable Affect description: congruent with mood, full range Speech pattern: Normal rate, Normal rhythm, Normal tone Speech Volume: Normal Thought process: Linear, Goal Oriented Thought Content: No Suicidal ideation, No Homicidal ideation, No Overt delusions Perceptual Disturbances: No Auditory hallucinations, No Visual hallucinations Judgment: Limited Insight: Partial
== END 2017-04-12 16:55 | disposition home or self-care (01) | DRG 754 ==
LOC: EMEROO 14:02 → 1ANU 04-09 14:18 → SUATTDRO 04-09 14:18 → 1ANU 04-09 14:37
PROVIDERS: ADMIT Psychiatry & Neurology Psychiatry; ATTEND Psychiatry & Neurology Psychiatry

== ENCOUNTER 2017-05-04 02:06 | Observation (INO) ==
[2017-05-04 02:45] LABS: Basophils # 0.1 K/mcL (0.0-0.2); Eosinophils # 0.3 K/mcL (0.0-0.6); Eosinophils % 2.8 %; Hematocrit 41.5 % (37.5-50.1); Hemoglobin 14.4 g/dL (12.9-16.9); Immature Granulocytes % 0.2 % (0-4); Lymphocytes # 3.1 K/mcL (0.6-4.6); Lymphocytes % 29.4 %; Mean Corpuscular HGB Conc 34.7 g/dL (31.6-35.5); Mean Corpuscular Hemoglobin 31.2 pg (28.0-33.3); Mean Corpuscular Volume 89.8 fL (83.0-100.0); Mean Platelet Volume 9.8 fL (9.4-12.4); Monocytes % 9.2 %; Neutrophils # 6.1 K/mcL (1.6-8.9); Platelet Count 291 K/mcL (140-400); Red Blood Count 4.62 M/mcL (4.19-5.50); Red Cell Distribution Width 12.1 % (11.5-14.5); Segmented Neutrophils % 57.4 %
[2017-05-04 02:46] LABS: Bilirubin,Urine Negative (Negative); Blood,Urine Negative (Negative); Clarity,Urine Clear (Clear); Color,Urine Yellow (Yellow); Glucose,Urine (UA) Normal (Normal); Ketones,Urine Negative (Negative); Leukocyte Esterase,Urine Negative (Negative); Nitrite,Urine Negative (Negative); PH,Urine 5.5 pH Units (5.0-8.0); Protein,Urine Negative (Neg-Trace); Specific Gravity,Urine 1.025 (1.010-1.025); Urobilinogen,Urine Normal (Normal)
--- NOTE | 2017-05-04 02:50 | Emergency Department Note ---
Disposition Clinical Impression: Suicidal ideation Overdose Qualifiers: Encounter type: initial encounter Injury intent: intentional self-harm Qualified Code(s): T50.902A - Poisoning by unspecified drugs, medicaments and biological substances, intentional self-harm, initial encounter Disposition: Admitted As Inpatient Condition: Good Time of Disposition: 04:41 Psych HPI - General Chief Complaint: ED Psychiatric Symptoms Stated Complaint: "Back Pain"/SI Time Seen by Provider: 05/04/17 02:17 Source: patient Mode of arrival: ambulatory Limitations: no limitations Nursing Notes Reviewed: Yes Vital Signs Reviewed: Yes - History of Present Illness HPI Narrative: 42-year-old male history of alcohol dependence and depression presents for suicidal ideation. He is homeless. Reports having thoughts of overdosing on heroin earlier this evening. Last used heroin 1 month ago. Normally a full vial may kill him, but typically he only uses a half syringe. Earlier he was with some friends today and felt like no one cared for his well being. He started to have these thoughts to overdose and . He denies any alcohol or drug use today. Last drank alcohol 2 nights ago. Reports some hallucinations. Scheduled for alcohol rehab later this week. History of psychiatric hospitalization here at [facility]. Reports compliance with his medications without any recent changes. Complains of worsening upper back pain that is chronic. Denies any recent fall or trauma. Denies any overdose of medications or drugs. - Related Data Home Medications Medication Instructions Recorded Confirmed Omeprazole [PriLOSEC] 20 mg PO DAILY 03/26/17 04/08/17 Quetiapine Fumarate [Seroquel] 200 mg PO HS 04/09/17 04/09/17 Quetiapine Fumarate [Seroquel] 400 mg PO HS 04/09/17 04/09/17 Previous Rx's Medication Instructions Recorded BuPROPion SR (12 HR) [Wellbutrin 150 mg PO DAILY #30 tablet.er 03/29/17 SR] Sertraline [Zoloft] 100 mg PO DAILY #30 tablet 03/29/17 Allergies Allergy/AdvReac Type Severity Reaction Status Date / Time Penicillins Allergy Hives Verified 12/02/16 06:35 All systems ED: reviewed and negative except as stated. Constitutional: Denies: fever, chills Cardiovascular: Denies: chest pain Respiratory: Denies: cough, dyspnea Gastrointestinal: Denies: abdominal pain, nausea, vomiting Genitourinary: Denies: urgency, dysuria Musculoskeletal: Reports: back pain. Denies: neck pain Integumentary: Denies: rash, abrasion Neurological: Denies: headache, weakness, numbness Past Medical History - Past Medical History Attestation: Yes The following information was validated with the patient. Source: patient Medical history: Reports: arthritis, hepatitis Surgical history: Reports: other Psychiatric history: Reports: depression, prior suicide attempt, previous psychiatric hospitalization - Social History Smoking Status: Current some day smoker Smokeless Tobacco Status: Yes Alcohol use: Reports: heavy, recent Drug use: Reports: cocaine, opiates, marijuana, IVDU Physical Exam - General Limitations: no limitations General appearance: alert, in no apparent distress, appears intoxicated - Head Head exam: atraumatic, normocephalic, normal inspection - Eye Eye exam: Present: normal appearance, PERRL, EOMI - ENT ENT exam: normal exam, normal oropharynx, mucous membranes moist - Neck Neck exam: Present: normal inspection, full ROM, trachea midline. Absent: tenderness - Chest Chest inspection: Present: normal inspection, symmetric chest wall rise - Respiratory Respiratory exam: Present: normal lung sounds bilaterally - Cardiovascular Cardiovascular exam: Present: regular rate, normal rhythm, normal heart sounds - Abdominal Exam Abdominal exam: Present: soft, Non-Tender, normal bowel sounds. Absent: tenderness, distention, guarding, rebound, rigidity - Extremities Exam Extremities exam: Present: normal inspection, full ROM, normal capillary refill. Absent: tenderness, pedal edema - Back Exam Back exam: Present: normal inspection, full ROM. Absent: tenderness, vertebral tenderness - Neurological Exam Neurological exam: Present: alert, oriented X3, CN II-XII intact - Psychiatric Psychiatric exam: Present: normal affect, depressed, suicidal ideation - Skin Skin exam: Present: warm, dry, intact, normal color. Absent: rash Course - Reevaluation(s) Reevaluation #1: Vitals remain stable. Spoke with 1A for consult. They are familiar with this patient as his suicidal thoughts are usually situational. They will be coming down to speak with the patient. He is positive for Cocaine on UDS. This does not appear consistent with his presentation as he is somnolent and appears intoxicated. No significant anion gap. Denies any overdose or drug use prior to arrival. Time: 03:32 Reevaluation #2: 1A at bedside to evaluate. He continues to be somnolent and sleepy. He reports to [facility] nurse, that he took 400 mg seroquel and 2-3 tablets of Zoloft prior to arrival which he did not disclose to me earlier. She is unable to carry a conversation appropriate for psych evaluation as he falls asleep quickly. Upon my re-evaluation he is more somnolent than earlier as well. Plan to admit to hospitalist for overdose and on-floor psych evaluation. Impression for suicidal ideation and overdose. EKG performed without any interval prolongation. Time: 04:11 Reevaluation #3: Images are unremarkable. Patient is on the floor. Time: 06:51 - Consultations Consultation #1: Spoke with on-call hospitalist jordan Carlisle to admit for overdose and suicidal ideation. No further orders at this time Time: 04:36 Consultation #2: Continues to be somnolent and intoxicated appearing. Labs are unremarkable. No obvious signs of trauma. Continues to protect his airway but speech is mumbled. Hospitalist requests CT head and cervical spine. CXR ordered as well. Stable to transfer to floor after images. Time: 04:49 Vital Signs Temperature 97.8 F 05/04/17 02:08 Pulse Rate 118 05/04/17 02:08 Respiratory Rate 18 05/04/17 02:08 Blood Pressure 116/77 05/04/17 02:08 O2 Sat by Pulse Oximetry 97 05/04/17 02:08 Temperature 98.2 F 05/04/17 05:01 Pulse Rate 77 05/04/17 05:01 Respiratory Rate 16 05/04/17 05:01 Blood Pressure 113/73 05/04/17 05:01 O2 Sat by Pulse Oximetry 96 05/04/17 05:01 Oxygen Delivery Oxygen Delivery Room Air Psych - Lab Data Result diagrams: 05/04/17 02:35 05/04/17 02:35 Lab Results 05/04/17 05/04/17 05/04/17 Range/Units 02:35 02:35 02:35 WBC 10.6 (4.3-11.1) K/mcL RBC 4.62 (4.19-5.50) M/mcL Hgb 14.4 (12.9-16.9) g/dL Hct 41.5 (37.5-50.1) % MCV 89.8 (83.0-100.0) fL MCH 31.2 (28.0-33.3) pg MCHC 34.7 (31.6-35.5) g/dL RDW 12.1 (11.5-14.5) % Plt Count 291 (140-400) K/mcL MPV 9.8 (9.4-12.4) fL Immature Gran % 0.2 (0-4) % Seg Neutrophils % 57.4 % Lymphocytes % 29.4 % Monocytes % 9.2 % Eosinophils % 2.8 % Basophils % 1.0 % Neutrophils # 6.1 (1.6-8.9) K/mcL Lymphocytes # 3.1 (0.6-4.6) K/mcL Monocytes # 1.0 (0.0-1.3) K/mcL Eosinophils # 0.3 (0.0-0.6) K/mcL Basophils # 0.1 (0.0-0.2) K/mcL Sodium 137 (136-145) mEq/L Potassium 4.1 (3.5-4.5) mEq/L Chloride 102 (98-109) mEq/L Carbon Dioxide 25 (19-29) mEq/L BUN 10 (8-26) mg/dL Creatinine 1.02 (0.72-1.25) mg/dL Est GFR ( Amer) > 60 (> 60) Est GFR (Non-Af Amer) > 60 (> 60) BUN/Creatinine Ratio 10 (6-26) Glucose 106 H (70-99) mg/dL Calculated Osmolality 283 (280-300) Calcium 9.8 (8.6-10.8) mg/dL Urine Color Yellow (Yellow) Urine Clarity Clear (Clear) Urine pH 5.5 (5.0-8.0) pH Units Ur Specific [place] 1.025 (1.010-1.025) Urine Protein Negative (Neg-Trace) mg/dL Urine Glucose (UA) Normal (Normal) mg/dL Urine Ketones Negative (Negative) mg/dL Urine Blood Negative (Negative) Urine Nitrite Negative (Negative) Urine Bilirubin Negative (Negative) Urine Urobilinogen Normal (Normal) mg/dL Ur Leukocyte Esterase Negative (Negative) Salicylates < 5.0 L (15-30) mg/dL Urine Opiates Screen (Fdwfxn=897) ng/mL Acetaminophen < 1.0 L (10-30) mcg/mL Ur Barbiturates Screen (Anwjpc=191) ng/mL Ur Phencyclidine Scrn (Cutoff=25) ng/mL Ur Amphetamines Screen (Dwfsxa=9370) ng/mL U Benzodiazepines Scrn (Hbetvo=813) ng/mL Urine Cocaine Screen (Cutoff= 300) ng/mL U Marijuana (THC) Screen (Cutoff = 50) ng/mL Ethyl Alcohol < 10 (0-10) mg/dL 05/04/17 Range/Units 02:35 WBC (4.3-11.1) K/mcL RBC (4.19-5.50) M/mcL Hgb (12.9-16.9) g/dL Hct (37.5-50.1) % MCV (83.0-100.0) fL MCH (28.0-33.3) pg MCHC (31.6-35.5) g/dL RDW (11.5-14.5) % Plt Count (140-400) K/mcL MPV (9.4-12.4) fL Immature Gran % (0-4) % Seg Neutrophils % % Lymphocytes % % Monocytes % % Eosinophils % % Basophils % % Neutrophils # (1.6-8.9) K/mcL Lymphocytes # (0.6-4.6) K/mcL Monocytes # (0.0-1.3) K/mcL Eosinophils # (0.0-0.6) K/mcL Basophils # (0.0-0.2) K/mcL Sodium (136-145) mEq/L Potassium (3.5-4.5) mEq/L Chloride (98-109) mEq/L Carbon Dioxide (19-29) mEq/L BUN (8-26) mg/dL Creatinine (0.72-1.25) mg/dL Est GFR ( Amer) (> 60) Est GFR (Non-Af Amer) (> 60) BUN/Creatinine Ratio (6-26) Glucose (70-99) mg/dL Calculated Osmolality (280-300) Calcium (8.6-10.8) mg/dL Urine Color (Yellow) Urine Clarity (Clear) Urine pH (5.0-8.0) pH Units Ur Specific [place] (1.010-1.025) Urine Protein (Neg-Trace) mg/dL Urine Glucose (UA) (Normal) mg/dL Urine Ketones (Negative) mg/dL Urine Blood (Negative) Urine Nitrite (Negative) Urine Bilirubin (Negative) Urine Urobilinogen (Normal) mg/dL Ur Leukocyte Esterase (Negative) Salicylates (15-30) mg/dL Urine Opiates Screen Negative (Ndqzdt=906) ng/mL Acetaminophen (10-30) mcg/mL Ur Barbiturates Screen Negative (Verxix=608) ng/mL Ur Phencyclidine Scrn Negative (Cutoff=25) ng/mL Ur Amphetamines Screen Negative (Pgljaa=4314) ng/mL U Benzodiazepines Scrn Negative (Wmlvze=262) ng/mL Urine Cocaine Screen Positive H (Cutoff= 300) ng/mL U Marijuana (THC) Screen Negative (Cutoff = 50) ng/mL Ethyl Alcohol (0-10) mg/dL - EKG Data EKG attestation: Yes I reviewed and interpreted this EKG. EKG results narrative: EKG performed 425 normal sinus rhythm 79 bpm, good R-R wave progression, normal axis, there are no ST elevations or depressions, no T-wave inversions. Intervals are within normal limits CT interval 116 QRS 96 QT QTC 365 399. Compared to old EKG performed 04/14/2017 shows consistent findings of normal sinus rhythm. No acute ischemic changes. Psychiatric Medical Clearance - Medical Clearance Checklist Medical History: No Social History Section defined Current Vitals: Last Vital Signs Temp 98.2 F 05/04/17 05:01 Pulse 77 05/04/17 05:01 Resp 16 05/04/17 05:01 BP 113/73 05/04/17 05:01 Pulse Ox 96 05/04/17 05:01 Psychiatric Lab Panel: Drug Levels and Toxicity 05/04/17 05/04/17 02:35 02:35 Urine Opiates Screen Negative Acetaminophen < 1.0 L Ur Barbiturates Screen Negative Ur Phencyclidine Scrn Negative Ur Amphetamines Screen Negative U Benzodiazepines Scrn Negative Urine Cocaine Screen Positive H U Marijuana (THC) Screen Negative Ethyl Alcohol < 10 Abnormal Labs: Abnormal lab results Glucose 106 mg/dL (70-99) H 05/04/17 02:35 Salicylates < 5.0 mg/dL (15-30) L 05/04/17 02:35 Acetaminophen < 1.0 mcg/mL (10-30) L 05/04/17 02:35 Urine Cocaine Screen Positive ng/mL (Cutoff= 300) H 05/04/17 02:35 Statement of Medical Clearance: I have evaluated the patient, reviewed diagnostic information, and certify that the patient's medical condition is sufficiently stable that transfer to the psychiatric unit does not pose a significant risk of deterioration. Attestation Statement - Attestation Attestation: I, Andre Lima MD, personally evaluated this patient and discussed their management with the resident physician. I reviewed the resident's note and agree with the documented findings, medical decision making, and plan of care. 42-year-old male presents to the emergency department with a complaint of depression and suicidal ideation. History of similar episodes in the past requiring hospitalization. Admits to alcohol abuse and drug use. Patient reports he wants to overdose and kill himself. He also complains of some lower back pain which is chronic. On examination patient is a well-developed well-nourished male in no acute distress. He does appear very drowsy but responds to verbal stimuli and is oriented. There is no cyanosis or diaphoresis. Breath sounds are clear and equal bilaterally. Heart regular with a mild tachycardia. Abdomen soft and nontender with normal bowel sounds. Labs reviewed and unremarkable. Alcohol negative. Tox screen positive for cocaine. [facility]A psych service consulted and will evaluate patient in the emergency department. They were unable to adequately evaluate the patient due to his drowsiness and unable to stay awake. Patient admitted to the 1 nurse that he took several Seroquel and Zoloft prior to coming to the emergency department. They recommended hospital admission and psychiatric evaluation later when more alert. The hospitalist, Dr. Amanda, was then consulted and accepted admission of the patient. He did request a CT of the head and neck which was obtained and is negative.
[2017-05-04 02:53] LABS: Amphetamine Screen,Urine Negative ng/mL (Cutoff=1000); Barbiturate Screen,Urine Negative ng/mL (Cutoff=200); Benzodiazepines Screen,Urine Negative ng/mL (Cutoff=200); Cannabinoid Screen,Urine Negative ng/mL (Cutoff = 50); Cocaine Screen,Urine Positive ng/mL (Cutoff= 300); Opiate Screen,Urine Negative ng/mL (Cutoff=300); Phencyclidine Screen,Urine Negative ng/mL (Cutoff=25)
[2017-05-04] MEDS: Ibuprofen 600 MG TABLET PO ONE ×2 (02:55→02:57)
[2017-05-04 02:59] LABS: Acetaminophen < 1.0 mcg/mL (10-30); BUN/Creatinine Ratio 10 (6-26); Blood Urea Nitrogen 10 mg/dL (8-26); Calcium 9.8 mg/dL (8.6-10.8); Carbon Dioxide 25 mEq/L (19-29); Chloride 102 mEq/L (98-109); Ethanol < 10 mg/dL (0-10); Glucose 106 mg/dL (70-99); Osmolality,Calculated 283 (280-300); Potassium 4.1 mEq/L (3.5-4.5); Salicylate < 5.0 mg/dL (15-30); Sodium 137 mEq/L (136-145); eGFR For African Americans > 60 (> 60); eGFR For Non-African Americans > 60 (> 60)
[2017-05-04] MEDS ORDERED: Ondansetron 4 MG/2 ML VIAL IVP PRN (04:53)
[2017-05-04] MEDS ORDERED: Acetaminophen 325 MG TABLET PO PRN (04:53)
[2017-05-04] MEDS ORDERED: Naloxone 0.4 MG/ML INJ IVP PRN (04:53)
[2017-05-04] MEDS ORDERED: Ketorolac 30 MG/ML VIAL IVP PRN (04:53)
--- NOTE | 2017-05-04 05:00 | Internal Med History&Physical ---
Date of Encounter: 05/04/17 Time of Encounter: 04:57 Assessment and Plan (1) Intoxication by drug Current visit: Yes Status: Acute Apparently the patient took 400 mg of Seroquel and Zoloft, positive for cocaine Senda CT scan of the head, neck and chest x-ray Aspiration and fall precautions, sitter Nothing by mouth Protonix IV for GI prophylaxis and sequential compression devices for DVT prophylaxis. The patient will be admitted for observation. Full code. Time spent on this admission 40 minutes. I risk for aspiration Qualifiers: Complication of substance-induced condition: with unspecified complication Qualified Code(s): F19.929 - Other psychoactive substance use, unspecified with intoxication, unspecified (2) Hepatitis C Current visit: Yes Status: Acute Needs to follow up as an outpatient Qualifiers: Viral hepatitis chronicity: chronic Hepatic coma status: without hepatic coma Qualified Code(s): B18.2 - Chronic viral hepatitis C (3) Alcoholism with alcohol dependence Current visit: No Status: Acute Consider adding Ativan as needed per ciwa scale once he is less somnolent Qualifiers: Substance use status: unspecified alcohol-induced disorder Qualified Code(s ): F10.29 - Alcohol dependence with unspecified alcohol-induced disorder (4) Polysubstance abuse Current visit: No Status: Acute (5) Suicidal ideation Current visit: Yes Status: Acute Psychiatry consult. May need to be transferred to after medical clearance in 24 hours Internal Medicine - H&P: HPI Chief complaint: Suicidal ideation Admitted From: Emergency Dept History of present illness: Mr. Richardson is a 42 year old male with a past medical history of polysubstance abuse, suicidal attempts in the past, hepatitis C, IV drug abuse was recently discharged from the psychiatry unit on April 12 of these year. Was admitted to the ER as he claimed to have suicidal ideation. Initially he did not mention that he to get any doses of any medications, psychiatry was consulted as the patient apparently wanted to kill himself using heroine. According to the records he did not use any hearing the past few days, was positive for cocaine in urine, the psychiatry service evaluated him but he was too somnolent and has been progressively getting worse. He mentioned he took alcohol 2 days ago to the ER physician. At the time of my examination the patient could stay awake and is mumbling words, cannot be understood. Apparently he took 400 mg of Seroquel and a few pills of Zoloft. EKG is unremarkable heart rate is 118. CT scan of the head and neck and chest x-ray have not been done yet Past Med Surg Social Fam HX - Past Medical History Medical history: arthritis, hepatitis (C), other (IV drug abuse, polysubstance abuse, depression, suicidal attempts, tobacco use) Psychiatric history: depression, prior suicide attempt, previous psychiatric hospitalization - Past Surgical History Surgical History: other - Social History Smoking Status: Current some day smoker Packs per day: One pack Smokeless Tobacco Status: Yes Alcohol use: heavy, recent Drug use: cocaine, opiates, marijuana, IVDU - Additional Family History Additional family history: Unobtainable at the moment Internal Medicine - H&P: Meds Omeprazole [PriLOSEC] 20 mg PO DAILY 03/26/17 [History] BuPROPion SR (12 HR) [Wellbutrin SR] 150 mg PO DAILY #30 tablet.er 03/29/17 [Rx] Sertraline [Zoloft] 100 mg PO DAILY #30 tablet 03/29/17 [Rx] Quetiapine Fumarate [Seroquel] 200 mg PO HS 04/09/17 [History] Quetiapine Fumarate [Seroquel] 400 mg PO HS 04/09/17 [History] Allergies Penicillins Allergy (Verified 12/02/16 06:35) Hives All Systems PM: A 10-system review of systems was performed and is negative for pertinent findings except as documented above in the HPI. Review of systems: Unable to be completed due to the patient's status - Constitutional Vitals: Temp Pulse Resp BP Pulse Ox 0 F L 118 18 118/78 97 05/04/17 04:54 05/04/17 02:08 05/04/17 04:54 05/04/17 04:54 05/04/17 02:08 General appearance: Present: A&O X 1 Exam: Very somnolent, can barely stay awake - Head Head exam: Present: atraumatic, normocephalic - Eye Eye exam: Present: PERRL, conjuntiva pink, sclera anicteric Pupils: Present: PERRL - Neck Neck exam general surgery: Present: supple, trachea midline. Absent: lymphadenopathy - Respiratory Respiratory exam: Present: CTAB. Absent: accessory muscle use, rales, rhonchi, wheezes - Cardiovascular Cardiovascular exam: Present: RRR, +S1, +S2. Absent: diastolic murmur, gallop, rubs, systolic murmur - GI/Abdominal GI/Abdominal exam: Present: normal bowel sounds, soft, no peritoneal signs. Absent: distended, tenderness - Extremities Exam Extremities exam: Present: warm, radial pulses palpable and symetrical. Absent : calf tenderness, cyanotic, pedal edema - Neurological Exam Neurological exam: Present: CN II-XII intact, no focal deficits. Absent: oriented X3 (Mumbling words), pronater drift, facial droop, speech deficit - Skin Skin exam: Present: dry, intact Internal Med - H&P Results - Labs CBC & Chem 7: 05/04/17 02:35 05/04/17 02:35
[2017-05-04] MEDS: 0.9 % Sodium Chloride 1,000 ML IVC SCH ×2 (05:20→13:39)
[2017-05-04 07:13] VITALS: BP 105/61
[2017-05-04] MEDS ORDERED: Pantoprazole 40 MG VIAL IVP SCH (09:00)
--- NOTE | 2017-05-04 09:27 | Electrocardiograph Report ---
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
[2017-05-04] MEDS ORDERED: Thiamine (B-1) 100 MG TABLET PO SCH (11:00)
[2017-05-04] MEDS ORDERED: Vitamin B Complex/Vit C/Vit E 1 EACH TABLET PO SCH (11:00)
[2017-05-04] MEDS ORDERED: Folic Acid 1 MG TABLET PO SCH (11:00)
[2017-05-04] MEDS ORDERED: *HR* LORazepam 1 MG TABLET PO SCH (11:00)
--- NOTE | 2017-05-04 15:23 | Discharge Summary ---
Date of Encounter: 05/04/17 Time of Encounter: 09:15 - Discharge Diagnosis (1) Pneumonia Priority: Secondary Status: Acute Comments: Chest x-ray done last night showed interval worsening of left basilar airspace opacity, representing either atelectasis, pneumonia, or aspiration. There is mild interstitial pulmonary edema and biapical bullous emphysema. Chest x-ray shows new mild interstitial pulmonary edema is new from the study on . Patient states that he is unwilling to stay for treatment. There is no leukocytosis, fever, tachycardia, shortness of breath, dyspnea, cough. His lungs are clear posteriorly. He has requested a Z-Albert and says that he will be compliant with that. I did request a follow-up with primary care physician, as well. Qualifiers: Pneumonia type: due to unspecified organism Laterality: bilateral Lung location: lower lobe of lung Qualified Code(s): J18.9 - Pneumonia, unspecified organism (2) Suicidal ideation Priority: Secondary Status: Acute Comments: Patient states that he was suicidal last night due to being homeless. He denies suicidal or homicidal ideations today. He was seen by psychiatry and cleared for discharge. (3) Alcoholism with alcohol dependence Priority: Secondary Status: Acute Comments: Patient states that he drinks alcohol daily. He has not required any Ativan from the CIWA protocol. He has been slightly agitated, although pleasant. He does appear to be anxious and says that he has an appointment he has to be at and cannot stay. He says that he does have someone to stay with who is clean and sober who will allow him to stay with him until he goes to [facility] in [place] for rehabilitation in less than a week. Qualifiers: Substance use status: unspecified alcohol-induced disorder Qualified Code(s ): F10.29 - Alcohol dependence with unspecified alcohol-induced disorder (4) Polysubstance abuse Priority: Secondary Status: Chronic Comments: Patient admits to using heroin 13-4 times a week, 1-1/2 g to 2 g. He admits to taking alcohol daily. And cocaine 2-3 times a week. (5) Intoxication by drug Priority: Primary Status: Acute Comments: Patient presented to the emergency room with suicidal ideations yesterday. He said he wanted to overdose on heroin. He said that he was with friends earlier today and felt like no one cared for his well-being. At that time he began having feelings to overdose and . He denies any alcohol or drug use the day of admission. He says his last drink of alcohol was 2 nights ago. Said he has had symptoms hallucinations and is scheduled to go to inpatient rehabilitation within the next week. He is recently hospitalized on on a for depression. Polysubstance drug abuse. Qualifiers: Complication of substance-induced condition: with unspecified complication Qualified Code(s): F19.929 - Other psychoactive substance use, unspecified with intoxication, unspecified (6) Hepatitis C Priority: Secondary Status: Chronic Comments: Patient states that he does not get treatment for his hepatitis because he cannot stay clean for 6 months at a time. He is allegedly going to an inpatient facility [place] within the next week. Qualifiers: Viral hepatitis chronicity: chronic Hepatic coma status: without hepatic coma Qualified Code(s): B18.2 - Chronic viral hepatitis C - Discharge Medications Prescriptions: Azithromycin [Azithromycin 6-Tab Pack] 250 mg PO PER PKG DI #6 tab Home Medications: RX: BuPROPion SR (12 HR) [Wellbutrin SR] 150 mg PO DAILY #30 tablet.er 03/29/17 [Rx] RX: Sertraline [Zoloft] 100 mg PO DAILY #30 tablet 03/29/17 [Rx] Azithromycin [Azithromycin 6-Tab Pack] 250 mg PO PER PKG DI #6 tab 05/04/17 [Rx] RX: Famotidine [Pepcid] 20 mg PO BID 05/04/17 [History] RX: Gabapentin [Neurontin] 600 mg PO TID 05/04/17 [History] RX: Quetiapine Fumarate [Seroquel] 75 mg PO HS 05/04/17 [History] RX: Quetiapine Fumarate [Seroquel] 200 mg PO HS 05/04/17 [History] Allergies/Adverse Reactions: Allergies Penicillins Allergy (Verified 05/04/17 06:53) Hives Procedures/tests Complete & Pending: Procedures Performed prior 72 hours Category Date Time Status CT cervical spine wo con [CT] Stat Cat Scan 05/04/17 04:[address] head/brain wo con [CT] Stat Cat Scan 05/04/17 04:47 Completed Date of admission: 05/04/17 04:44 Primary care physician: PCP NO Consults: 05/04/17 04:55 Consult to [employer] Swaging [employer] Operator [CONS] Routine Reason for SW Consult: od 05/04/17 04:56 Consult to Psychiatry [CONS] Routine Consulting Provider: Cecilio Means Reason for Consult: suicidal Call Completed: Yes Discharging clinician: Cierra Rm Anticipated date of discharge: 05/04/17 - Patient Status Disposition: Home, Self-Care Functional capacity at discharge: independent ambulation Overall status at discharge: patient is back to baseline - Discharge Instructions Follow Up With: NO,PCP [Primary Care Provider] - Additional Instructions: Follow up with your doctor in the next week or 2 for a follow up appointment. Take your antibiotic as directed. Return to the ER as needed for any other problems or concerns. Return to the ER if you begin having a fever or productive cough. - Diet and Activity Activity: increase activity as tolerated Diet: advance to your usual diet Hospital course: Mr. Richardson is a 42 year old male with recent history of suicidal ideation and depression, hepatitis C, polysubstance drug abuse, alcoholism, overdose. Patient presented to the emergency room last night with suicidal ideations and feeling as if he like to overdose on heroin. He said he feels like no one cares about his well-being. He is currently homeless and says that he stays with "associates". He admits to doing one and a half to 2 g of heroin 3-4 times a week, drinks alcohol daily, and uses cocaine at least 2 times a week. He denies suicidal ideations today. He was cleared by psychiatry for discharge. He says that he feels better today. He is mildly agitated at times and has requested Ativan and pain medication IV. I explained to him I would not be able to give him any narcotic pain medication, but I would give him CIWA protocol for withdrawal. He did not require any Ativan. Patient says he has an appointment he has to attend and he cannot stay here. I did discuss with him potential pneumonia and he says he would like to have a Z-Albert and go home. He says he will be compliant with the Z-Albert. His lungs are clear and diminished anteriorly and posteriorly. There are no rhonchi, wheezes, Rales, or respiratory distress. I encouraged him to follow up with his primary care physician, he was agreeable to this. He is not treated for his hepatitis currently due to not being able to stay sober for 6 months at a time. His vitals are within normal limits. He has no cytosis or fever. Labs are within normal limits. He has been cleared by psychiatry for discharge. She is stable for discharge. Time spent discussing smoking cessation with patient: 3 to 10 minutes - Time Spent with Patient Total time spent providing and/or coordinating discharge services: Greater than 30 minutes - Constitutional Vitals: Temp Pulse Resp BP Pulse Ox 97.4 F L 65 17 105/61 96 05/04/17 07:12 05/04/17 07:12 05/04/17 07:12 05/04/17 07:12 05/04/17 07:12 General appearance: Present: A&O X 3, pleasant, no acute distress, answers questions appropriately - Head Head exam: Present: normal inspection - Eye Eye exam: Present: EOMI, normal appearance, PERRL, conjuntiva pink. Absent: nystagmus - ENT ENT exam: Present: mucous membranes moist, normal exam, normal external ear exam - Neck Neck exam general surgery: Present: normal inspection. Absent: lymphadenopathy , tenderness - Respiratory Respiratory exam: Present: decreased breath sounds, CTAB. Absent: rales, respiratory distress, rhonchi, stridor, wheezes, tachypnea - Cardiovascular Cardiovascular exam: Present: RRR, +S1, +S2. Absent: diastolic murmur, systolic murmur - GI/Abdominal GI/Abdominal exam: Present: normal bowel sounds, soft. Absent: hepatomegaly, mass, tenderness - Extremities Exam Extremities exam: Present: normal inspection, warm, radial pulses palpable and symetrical. Absent: pedal edema, tenderness - Neurological Exam Neurological exam: Present: alert, oriented X3, no focal deficits, strengths equal and symetr throughout. Absent: pronater drift, facial droop, speech deficit
--- NOTE | 2017-05-04 15:44 | Consult Note ---
Date of Encounter: 05/04/17 Time of Encounter: 14:00 History of Present Illness Patient: known to practice within the last 3 years Requesting Physician: Cierra Rm CNP Reason for consult: Suicidal ideation History of present illness: Mr. Richardson is a 42 year old male admitted for treatment of change in mental status and possible overdose or suicidal ideation. Patient is well known to psychiatry service from previous admissions with a long history of substance abuse and bipolar disorder and noncompliance. Patient stated that he was picked up by police and taken the hospital for evaluation of possible intoxication and he denies any overdose or suicide attempts but he stated that he was sedated by taking his medication including Seroquel. He denies any intent to self-harm and confirmed that he is compliant with medication since his chart discharged from the hospital. Records and labs were reviewed. CC: Cierra Rm CNP Past Med Surg Social Fam HX - Past Medical History Medical history: arthritis, hepatitis - Past Surgical History Surgical History: other - Social History Smoking Status: Current some day smoker Smokeless Tobacco Status: Yes Alcohol use: heavy, recent Drug use: cocaine, opiates, marijuana, IVDU Medications & Allergies BuPROPion SR (12 HR) [Wellbutrin SR] 150 mg PO DAILY #30 tablet.er 03/29/17 [Rx] Sertraline [Zoloft] 100 mg PO DAILY #30 tablet 03/29/17 [Rx] Azithromycin [Azithromycin 6-Tab Pack] 250 mg PO PER PKG DI #6 tab 05/04/17 [Rx] Famotidine [Pepcid] 20 mg PO BID 05/04/17 [History] Gabapentin [Neurontin] 600 mg PO TID 05/04/17 [History] Quetiapine Fumarate [Seroquel] 75 mg PO HS 05/04/17 [History] Quetiapine Fumarate [Seroquel] 200 mg PO HS 05/04/17 [History] Allergies Penicillins Allergy (Verified 05/04/17 06:53) Hives Mental Status Exam Patient orientation: Yes Person, Yes Time, Yes Place Level of alertness: Alert Patient appearance: Appropriate, Well Groomed Behavior: calm, cooperative Psychomotor activity: Normal Eye contact: Maintains Eye Contact Mood description: Euthymic/stable Affect description: congruent with mood, full range Speech pattern: Normal rate, Normal rhythm, Normal tone Speech volume: Normal Thought process: Linear, Goal Oriented Thought content: No Suicidal ideation, No Homicidal ideation, No Overt delusions Perceptual disturbances: No Auditory hallucinations, No Visual hallucinations Attention span: Capable of Focused Attention Memory description: Grossly Intact Patient reliability: Reliable Historian Intelligence estimate: Average Judgment: Limited Insight: Partial Results - Vital Signs Vital signs: Temp Pulse Resp BP Pulse Ox 97.4 F L 65 17 105/61 96 05/04/17 07:12 05/04/17 07:12 05/04/17 07:12 05/04/17 07:12 05/04/17 07:12 - Labs Labs: Laboratory Last Values WBC 10.6 K/mcL (4.3-11.1) 05/04/17 02:35 RBC 4.62 M/mcL (4.19-5.50) 05/04/17 02:35 Hgb 14.4 g/dL (12.9-16.9) 05/04/17 02:35 Hct 41.5 % (37.5-50.1) 05/04/17 02:35 MCV 89.8 fL (83.0-100.0) 05/04/17 02:35 MCH 31.2 pg (28.0-33.3) 05/04/17 02:35 MCHC 34.7 g/dL (31.6-35.5) 05/04/17 02:35 RDW 12.1 % (11.5-14.5) 05/04/17 02:35 Plt Count 291 K/mcL (140-400) 05/04/17 02:35 MPV 9.8 fL (9.4-12.4) 05/04/17 02:35 Immature Gran % 0.2 % (0-4) 05/04/17 02:35 Seg Neutrophils % 57.4 % 05/04/17 02:35 Lymphocytes % 29.4 % 05/04/17 02:35 Monocytes % 9.2 % 05/04/17 02:35 Eosinophils % 2.8 % 05/04/17 02:35 Basophils % 1.0 % 05/04/17 02:35 Neutrophils # 6.1 K/mcL (1.6-8.9) 05/04/17 02:35 Lymphocytes # 3.1 K/mcL (0.6-4.6) 05/04/17 02:35 Monocytes # 1.0 K/mcL (0.0-1.3) 05/04/17 02:35 Eosinophils # 0.3 K/mcL (0.0-0.6) 05/04/17 02:35 Basophils # 0.1 K/mcL (0.0-0.2) 05/04/17 02:35 Sodium 137 mEq/L (136-145) 05/04/17 02:35 Potassium 4.1 mEq/L (3.5-4.5) 05/04/17 02:35 Chloride 102 mEq/L (98-109) 05/04/17 02:35 Carbon Dioxide 25 mEq/L (19-29) 05/04/17 02:35 BUN 10 mg/dL (8-26) 05/04/17 02:35 Creatinine 1.02 mg/dL (0.72-1.25) 05/04/17 02:35 Est GFR ( Amer) > 60 (> 60) 05/04/17 02:35 Est GFR (Non-Af Amer) > 60 (> 60) 05/04/17 02:35 BUN/Creatinine Ratio 10 (6-26) 05/04/17 02:35 Glucose 106 mg/dL (70-99) H 05/04/17 02:35 Calculated Osmolality 283 (280-300) 05/04/17 02:35 Calcium 9.8 mg/dL (8.6-10.8) 05/04/17 02:35 Urine Color Yellow (Yellow) 05/04/17 02:35 Urine Clarity Clear (Clear) 05/04/17 02:35 Urine pH 5.5 pH Units (5.0-8.0) 05/04/17 02:35 Ur Specific [place] 1.025 (1.010-1.025) 05/04/17 02:35 Urine Protein Negative mg/dL (Neg-Trace) 05/04/17 02:35 Urine Glucose (UA) Normal mg/dL (Normal) 05/04/17 02:35 Urine Ketones Negative mg/dL (Negative) 05/04/17 02:35 Urine Blood Negative (Negative) 05/04/17 02:35 Urine Nitrite Negative (Negative) 05/04/17 02:35 Urine Bilirubin Negative (Negative) 05/04/17 02:35 Urine Urobilinogen Normal mg/dL (Normal) 05/04/17 02:35 Ur Leukocyte Esterase Negative (Negative) 05/04/17 02:35 Salicylates < 5.0 mg/dL (15-30) L 05/04/17 02:35 Urine Opiates Screen Negative ng/mL (Lcjids=059) 05/04/17 02:35 Acetaminophen < 1.0 mcg/mL (10-30) L 05/04/17 02:35 Ur Barbiturates Screen Negative ng/mL (Wnxnfn=012) 05/04/17 02:35 Ur Phencyclidine Scrn Negative ng/mL (Cutoff=25) 05/04/17 02:35 Ur Amphetamines Screen Negative ng/mL (Rxdkse=7438) 05/04/17 02:35 U Benzodiazepines Scrn Negative ng/mL (Zaqbwe=244) 05/04/17 02:35 Urine Cocaine Screen Positive ng/mL (Cutoff= 300) H 05/04/17 02:35 U Marijuana (THC) Screen Negative ng/mL (Cutoff = 50) 05/04/17 02:35 Ethyl Alcohol < 10 mg/dL (0-10) 05/04/17 02:35 - Impressions Impressions Cervical Spine CT 05/04/17 04:47 IMPRESSION: No acute abnormality of the cervical spine. D/ / Isidoro Vizcarra MD / Isidoro Vizcarra MD Interpreting Provider: Isidoro Vizcarra MD Head CT 05/04/17 04:47 IMPRESSION: No acute intracranial abnormality. D/ / Isidoro Vizcarra MD / Isidoro Vizcarra MD Interpreting Provider: Isidoro Vizcarra MD Chest X-Ray 05/04/17 04:48 IMPRESSION: 1. Interval worsening of left basilar airspace opacity, representing either atelectasis, pneumonia, or aspiration. 2. Mild interstitial pulmonary edema. 3. Biapical bullous emphysema. D/ / 05/04/2017 08:06:14 Pacheco Sutton MD / el Interpreting Provider: Pacheco Sutton MD Consult Discharge Plan - Plan Additional Instructions: Follow up with your doctor in the next week or 2 for a follow up appointment. Take your antibiotic as directed. Return to the ER as needed for any other problems or concerns. Return to the ER if you begin having a fever or productive cough. Psychiatric consultation recommendation: From psychiatric standpoint patient is stable for discharge if medically clear. Haseeb Haynes MD Psychiatry Referrals: NO,PCP [Primary Care Provider] - Prescriptions: Azithromycin [Azithromycin 6-Tab Pack] 250 mg PO PER PKG DI #6 tab
== END 2017-05-04 16:20 | disposition home or self-care (01) ==
LOC: 3BNU 02:06 → EMEROO 02:06 → 3BNU 04:57
PROVIDERS: ADMIT Registered Nurse; ATTEND Registered Nurse

== ENCOUNTER 2020-07-26 03:35 | Observation (INO) ==
[2020-07-26 05:45] LABS: Adenovirus Not Detected (Not Detect); Coronavirus 229E Not Detected (Not Detect); Coronavirus HKU1 Not Detected (Not Detect); Coronavirus NL63 Not Detected (Not Detect); Coronavirus OC43 Not Detected (Not Detect)
[2020-07-26 05:46] LABS: Bordetella Pertussis Not Detected (Not Detect); Chlamydophila pneumoniae Not Detected (Not Detect); Human Metapneumovirus Not Detected (Not Detect); Human Rhinovirus/Enterovirus Not Detected (Not Detect); Influenza A Subtype 2009 H1 Not Detected (Not Detect); Influenza B Not Detected (Not Detect); Mycoplasma pneumoniae Not Detected (Not Detect); Parainfluenza Virus 1 Not Detected (Not Detect); Parainfluenza Virus 2 Not Detected (Not Detect); Parainfluenza Virus 3 Not Detected (Not Detect); Parainfluenza Virus 4 Not Detected (Not Detect); Respiratory Syncytial Virus Not Detected (Not Detect)
[2020-07-26] MEDS ORDERED: Naloxone 0.4 MG/ML INJ IVP PRN ×2 (05:58→07:05)
[2020-07-26] MEDS ORDERED: Ondansetron 4 MG/2 ML VIAL IVP PRN (05:58)
[2020-07-26] MEDS: 0.9 % Sodium Chloride 1,000 ML IVC SCH ×2 (06:37→14:19)
[2020-07-26] MEDS: Ketorolac 30 MG/ML VIAL IVP PRN ×2 (06:38→14:22)
[2020-07-26] MEDS ORDERED: *HR* LORazepam 2 MG/ML VIAL IVP PRN ×3 (06:46)
[2020-07-26] MEDS ORDERED: Ketorolac 30 MG/ML VIAL IVP PRN (07:30)
[2020-07-26] MEDS ORDERED: Acetaminophen 325 MG TABLET PO PRN (08:47)
[2020-07-26] MEDS: Piperacillin/Tazobactam 3.375 GM in 0.9 % Sodium Chloride Mini Bag 100 ML IVPB SCH ×2 (08:48→15:24)
[2020-07-26] MEDS: Famotidine 20 MG TABLET PO SCH ×2 (10:48→19:45)
[2020-07-26] MEDS: *HR* Heparin 5,000 UNIT/ML VIAL SQ SCH ×2 (14:27→22:00)
[2020-07-26] MEDS ORDERED: *HR* HYDROcodone/Acet 10/325 mg TABLET PO ONE (14:36)
[2020-07-26] MEDS: QUEtiapine Fumarate 25 MG TABLET PO SCH (19:45)
[2020-07-27] MEDS: 0.9 % Sodium Chloride 1,000 ML IVC SCH
[2020-07-27] MEDS: Piperacillin/Tazobactam 3.375 GM in 0.9 % Sodium Chloride Mini Bag 100 ML IVPB SCH ×3 (00:02→17:05)
[2020-07-27] MEDS: Ketorolac 30 MG/ML VIAL IVP PRN ×2 (00:20→13:01)
[2020-07-27] MEDS ORDERED: *HR* HYDROcodone/Acet 10/325 mg TABLET PO ONE (03:19)
[2020-07-27 05:22] LABS: Basophils # 0.1 K/mcL (0.0-0.2); Basophils % 0.7 %; Eosinophils # 0.5 K/mcL (0.0-0.6); Eosinophils % 2.8 %; Hematocrit 35.5 % (37.5-50.1); Hemoglobin 11.7 g/dL (12.9-16.9); Immature Granulocytes % 0.7 % (0-4); Lymphocytes # 2.3 K/mcL (0.6-4.6); Lymphocytes % 12.2 %; Mean Corpuscular Hemoglobin 31.1 pg (28.0-33.3); Mean Corpuscular Volume 94.4 fL (83.0-100.0); Mean Platelet Volume 10.3 fL (9.4-12.4); Monocytes # 1.7 K/mcL (0.0-1.3); Monocytes % 8.7 %; Neutrophils # 14.4 K/mcL (1.6-8.9); Platelet Count 196 K/mcL (140-400); Red Blood Count 3.76 M/mcL (4.19-5.50); Red Cell Distribution Width 13.6 % (11.5-14.5); Segmented Neutrophils % 74.9 %; White Blood Count 19.2 K/mcL (4.3-11.1)
[2020-07-27] MEDS: *HR* Heparin 5,000 UNIT/ML VIAL SQ SCH ×3 (05:27→22:57)
[2020-07-27 05:41] LABS: Alanine Aminotransferase 39 Units/L (7-52); Albumin 3.2 g/dL (3.5-5.7); Albumin/Globulin Ratio 1.2 (1.1-2.2); Alkaline Phosphatase 46 Units/L (34-104); Aspartate Amino Transferase 27 Units/L (13-39); BUN/Creatinine Ratio 16 (6-26); Bilirubin,Total 0.5 mg/dL (0.3-1.0); Blood Urea Nitrogen 15 mg/dL (6-20); Calcium 7.9 mg/dL (8.6-10.3); Carbon Dioxide 20 mEq/L (23-29); Chloride 114 mEq/L (98-107); Globulin 2.7 g/dL (2.4-3.5); Glucose 111 mg/dL (70-105); Osmolality,Calculated 296 (280-300); Potassium 3.5 mEq/L (3.5-5.1); Sodium 142 mEq/L (136-145); Total Protein 5.9 g/dL (6.4-8.9); eGFR For African Americans > 60 (> 60); eGFR For Non-African Americans > 60 (> 60)
[2020-07-27] MEDS: cloNIDine HCL 0.1 MG TABLET PO SCH ×2 (09:43→20:37)
[2020-07-27] MEDS: Famotidine 20 MG TABLET PO SCH ×2 (09:43→20:37)
[2020-07-27] MEDS ORDERED: Sodium Bicarbonate 75 MEQ in 0.45 % Sodium Chloride 1,000 ML IVC SCH (11:00)
[2020-07-27] MEDS ORDERED: predniSONE 20 MG TABLET PO ONE (15:56)
[2020-07-27] MEDS: QUEtiapine Fumarate 25 MG TABLET PO SCH (20:37)
[2020-07-28] MEDS: Piperacillin/Tazobactam 3.375 GM in 0.9 % Sodium Chloride Mini Bag 100 ML IVPB SCH ×4 (01:09→23:05)
[2020-07-28] MEDS: *HR* Heparin 5,000 UNIT/ML VIAL SQ SCH ×3 (08:46→22:14)
[2020-07-28] MEDS ORDERED: Gadolinium Contrast Agent (WT Based) IV PRN (08:49)
[2020-07-28] MEDS: Famotidine 20 MG TABLET PO SCH ×2 (08:50→22:01)
[2020-07-28] MEDS: cloNIDine HCL 0.1 MG TABLET PO SCH ×2 (08:50→22:07)
[2020-07-28 10:03] LABS: Basophils # 0.1 K/mcL (0.0-0.2); Basophils % 0.5 %; Eosinophils # 0.1 K/mcL (0.0-0.6); Eosinophils % 0.7 %; Hematocrit 38.7 % (37.5-50.1); Hemoglobin 12.9 g/dL (12.9-16.9); Immature Granulocytes % 0.9 % (0-4); Lymphocytes # 2.5 K/mcL (0.6-4.6); Lymphocytes % 16.8 %; Mean Corpuscular HGB Conc 33.3 g/dL (31.6-35.5); Mean Corpuscular Hemoglobin 30.9 pg (28.0-33.3); Mean Corpuscular Volume 92.6 fL (83.0-100.0); Mean Platelet Volume 10.2 fL (9.4-12.4); Monocytes # 1.1 K/mcL (0.0-1.3); Monocytes % 7.5 %; Neutrophils # 10.8 K/mcL (1.6-8.9); Platelet Count 240 K/mcL (140-400); Red Blood Count 4.18 M/mcL (4.19-5.50); Red Cell Distribution Width 13.3 % (11.5-14.5); Segmented Neutrophils % 73.6 %; White Blood Count 14.7 K/mcL (4.3-11.1)
[2020-07-28 10:23] LABS: BUN/Creatinine Ratio 15 (6-26); Blood Urea Nitrogen 11 mg/dL (6-20); Calcium 9.1 mg/dL (8.6-10.3); Carbon Dioxide 25 mEq/L (23-29); Chloride 109 mEq/L (98-107); Glucose 119 mg/dL (70-105); Magnesium 1.5 mg/dL (1.6-2.6); Osmolality,Calculated 289 (280-300); Phosphorous 2.4 mg/dL (2.7-4.5); Sodium 139 mEq/L (136-145); eGFR For African Americans > 60 (> 60); eGFR For Non-African Americans > 60 (> 60)
[2020-07-28] MEDS: Ketorolac 30 MG/ML VIAL IVP PRN ×2 (15:49→22:01)
[2020-07-28] MEDS: QUEtiapine Fumarate 25 MG TABLET PO SCH (22:07)
[2020-07-29] MEDS: Ketorolac 30 MG/ML VIAL IVP PRN (04:39)
[2020-07-29 04:57] LABS: Basophils # 0.1 K/mcL (0.0-0.2); Basophils % 1.6 %; Eosinophils # 0.7 K/mcL (0.0-0.6); Eosinophils % 7.6 %; Hematocrit 36.2 % (37.5-50.1); Hemoglobin 12.3 g/dL (12.9-16.9); Immature Granulocytes % 0.4 % (0-4); Lymphocytes # 3.4 K/mcL (0.6-4.6); Lymphocytes % 39.9 %; Mean Corpuscular Hemoglobin 31.4 pg (28.0-33.3); Mean Corpuscular Volume 92.3 fL (83.0-100.0); Mean Platelet Volume 10.3 fL (9.4-12.4); Monocytes # 0.6 K/mcL (0.0-1.3); Monocytes % 7.3 %; Neutrophils # 3.7 K/mcL (1.6-8.9); Platelet Count 223 K/mcL (140-400); Red Blood Count 3.92 M/mcL (4.19-5.50); Red Cell Distribution Width 13.2 % (11.5-14.5); Segmented Neutrophils % 43.2 %; White Blood Count 8.5 K/mcL (4.3-11.1)
[2020-07-29 05:14] LABS: BUN/Creatinine Ratio 19 (6-26); Blood Urea Nitrogen 14 mg/dL (6-20); Calcium 8.4 mg/dL (8.6-10.3); Carbon Dioxide 22 mEq/L (23-29); Chloride 110 mEq/L (98-107); Glucose 97 mg/dL (70-105); Magnesium 1.8 mg/dL (1.6-2.6); Osmolality,Calculated 290 (280-300); Potassium 3.6 mEq/L (3.5-5.1); Sodium 140 mEq/L (136-145); eGFR For African Americans > 60 (> 60); eGFR For Non-African Americans > 60 (> 60)
[2020-07-29] MEDS: *HR* Heparin 5,000 UNIT/ML VIAL SQ SCH (05:47)
[2020-07-29 06:56] VITALS: BP 107/61
[2020-07-29] MEDS: Famotidine 20 MG TABLET PO SCH (07:07)
[2020-07-29] MEDS: cloNIDine HCL 0.1 MG TABLET PO SCH (07:07)
[2020-07-29] MEDS: Piperacillin/Tazobactam 3.375 GM in 0.9 % Sodium Chloride Mini Bag 100 ML IVPB SCH (07:07)
== END 2020-07-29 11:46 | disposition home or self-care (01) ==
LOC: CDU → SUATTDRO 04:42 → 3BNU 05:47
PROVIDERS: ADMIT Internal Medicine; ATTEND Internal Medicine

== ENCOUNTER 2020-08-03 08:03 | Inpatient (IN) ==
[2020-08-03] MEDS ORDERED: Ondansetron ODT 4 MG TAB.RAPDIS SL ONE (08:21)
[2020-08-03 08:48] LABS: Basophils # 0.1 K/mcL (0.0-0.2); Basophils % 1.3 %; Eosinophils # 0.6 K/mcL (0.0-0.6); Eosinophils % 6.3 %; Hematocrit 44.7 % (37.5-50.1); Immature Granulocytes % 0.3 % (0-4); Lymphocytes # 2.9 K/mcL (0.6-4.6); Lymphocytes % 31.5 %; Mean Corpuscular HGB Conc 33.6 g/dL (31.6-35.5); Mean Corpuscular Hemoglobin 30.9 pg (28.0-33.3); Mean Platelet Volume 9.6 fL (9.4-12.4); Monocytes % 10.8 %; Neutrophils # 4.6 K/mcL (1.6-8.9); Platelet Count 329 K/mcL (140-400); Red Blood Count 4.86 M/mcL (4.19-5.50); Red Cell Distribution Width 13.3 % (11.5-14.5); Segmented Neutrophils % 49.8 %; White Blood Count 9.2 K/mcL (4.3-11.1)
[2020-08-03 08:54] LABS: Bacteria,Urine Few per hpf (None-Few); Bilirubin,Urine Small (Negative); Blood,Urine Negative (Negative); Clarity,Urine Turbid (Clear); Color,Urine Light-Orange (Yellow); Glucose,Urine (UA) Normal (Normal); Ketones,Urine 40 mg/dL (Negative); Leukocyte Esterase,Urine Negative (Negative); Mucus,Urine Many per lpf (None-Few); Nitrite,Urine Negative (Negative); Protein,Urine 50 mg/dL (Neg-Trace); Specific Gravity,Urine > 1.030 (1.010-1.025); Squamous Epithelial Cell,Urine Few per hpf (None-Few)
[2020-08-03 08:56] LABS: Amphetamine Screen,Urine Positive ng/mL (Cutoff=1000); Barbiturate Screen,Urine Positive ng/mL (Cutoff=200); Benzodiazepines Screen,Urine Negative ng/mL (Cutoff=200); Cannabinoid Screen,Urine Positive ng/mL (Cutoff = 50); Cocaine Screen,Urine Positive ng/mL (Cutoff= 300); Opiate Screen,Urine Negative ng/mL (Cutoff=300); Phencyclidine Screen,Urine Negative ng/mL (Cutoff=25)
[2020-08-03 09:02] LABS: Estimated Average Glucose 108 mg/dl
[2020-08-03 09:06] LABS: Acetaminophen < 10 mcg/mL (10-20); BUN/Creatinine Ratio 24 (6-26); Blood Urea Nitrogen 17 mg/dL (6-20); Calcium 10.2 mg/dL (8.6-10.3); Carbon Dioxide 25 mEq/L (23-29); Chloride 98 mEq/L (98-107); Chol/HDL Ratio 5.7 (0-4.9); Cholesterol 217 mg/dL (< 200); Ethanol < 10 mg/dL (Less than 10); Glucose 80 mg/dL (70-105); HDL Cholesterol 38 mg/dL (40-59); LDL Cholesterol,Calculated 158 mg/dL (< 100); Osmolality,Calculated 283 (280-300); Potassium 3.7 mEq/L (3.5-5.1); Salicylate < 2.5 mg/dL (15.0-30.0); Sodium 136 mEq/L (136-145); Triglycerides 106 mg/dL (< 150); eGFR For African Americans > 60 (> 60); eGFR For Non-African Americans > 60 (> 60)
[2020-08-03] MEDS ORDERED: *HR* LORazepam 1 MG TABLET PO PRN (10:30)
[2020-08-03] MEDS ORDERED: Haloperidol Lactate 5 MG/ML VIAL IM PRN (10:30)
[2020-08-03] MEDS ORDERED: *HR* LORazepam 2 MG/ML VIAL IM PRN (10:30)
[2020-08-03] MEDS ORDERED: MOM Conc 10 ML UD.LIQ PO PRN (10:30)
[2020-08-03] MEDS ORDERED: Mag Hydrox/Al Hydrox/Simeth 30 ML UDC PO PRN (10:30)
[2020-08-03] MEDS ORDERED: haloperidoL 5 MG TABLET PO PRN (10:30)
[2020-08-03] MEDS ORDERED: traZODone 50 MG TABLET PO PRN (10:30)
[2020-08-03] MEDS ORDERED: Ibuprofen 400 MG TABLET PO PRN (10:30)
[2020-08-03] MEDS ORDERED: hydrOXYzine pamoate 25 MG CAPSULE PO PRN (10:30)
[2020-08-03] MEDS ORDERED: cloNIDine HCL 0.1 MG TABLET PO PRN (11:15)
[2020-08-03] MEDS ORDERED: Baclofen 10 MG TABLET PO PRN (11:15)
[2020-08-03] MEDS ORDERED: Ibuprofen 800 MG TABLET PO PRN (11:20)
[2020-08-03] MEDS: QUEtiapine Fumarate 100 MG TABLET PO SCH (23:40)
[2020-08-04] MEDS: QUEtiapine Fumarate 100 MG TABLET PO SCH (20:01)
[2020-08-05] MEDS: QUEtiapine Fumarate 100 MG TABLET PO SCH (20:04)
[2020-08-06] MEDS ORDERED: QUEtiapine Fumarate 100 MG TABLET PO SCH (21:00)
[2020-08-07 09:40] VITALS: BP 126/79
== END 2020-08-07 15:55 | disposition home or self-care (01) | DRG 754 ==
LOC: EMEROOARM 08:03 → 1ANU 10:15
PROVIDERS: ADMIT Psychiatry & Neurology Psychiatry; ATTEND Psychiatry & Neurology Psychiatry

== ENCOUNTER 2022-02-12 17:14 | Inpatient (IN) ==
[2022-02-12 22:40] LABS: Influenza A PCR Negative (Negative); Influenza B PCR Negative (Negative); Resp. Syncytial Virus PCR Negative (Negative)
[2022-02-12 22:43] LABS: SARS-CoV-2 by PCR (In House) Negative (Negative)
[2022-02-12] MEDS ORDERED: *HR* LORazepam 1 MG TABLET PO PRN (22:47)
[2022-02-12] MEDS ORDERED: hydrOXYzine pamoate 25 MG CAPSULE PO PRN (22:47)
[2022-02-12] MEDS ORDERED: Ibuprofen 400 MG TABLET PO PRN (22:47)
[2022-02-12] MEDS ORDERED: Haloperidol Lactate 5 MG/ML VIAL IM PRN (22:47)
[2022-02-12] MEDS ORDERED: haloperidoL 5 MG TABLET PO PRN (22:47)
[2022-02-12] MEDS ORDERED: *HR* LORazepam 2 MG/ML VIAL IM PRN (22:47)
[2022-02-12] MEDS ORDERED: traZODone 50 MG TABLET PO PRN (22:47)
[2022-02-13] MEDS ORDERED: hydrOXYzine pamoate 25 MG CAPSULE PO PRN (10:31)
[2022-02-13] MEDS: carBAMazepine 200 MG TABLET PO SCH ×2 (10:57→20:19)
[2022-02-13] MEDS: traZODone 50 MG TABLET PO SCH (20:19)
[2022-02-13] MEDS ORDERED: QUEtiapine Fumarate 100 MG TABLET PO SCH (21:00)
[2022-02-14] MEDS: carBAMazepine 200 MG TABLET PO SCH ×2 (08:39→20:07)
[2022-02-14] MEDS ORDERED: *HR* LORazepam 1 MG TABLET PO PRN (13:47)
[2022-02-14] MEDS ORDERED: Ibuprofen 800 MG TABLET PO PRN (14:07)
[2022-02-14] MEDS ORDERED: Nicotine 2 MG GUM BC PRN (14:14)
[2022-02-14] MEDS ORDERED: Mag Hydrox/Al Hydrox/Simeth 30 ML UDC PO PRN (14:14)
[2022-02-14] MEDS ORDERED: MOM Conc 10 ML UD.LIQ PO PRN (14:14)
[2022-02-14] MEDS: Baclofen 10 MG TABLET PO PRN ×2 (14:31→20:08)
[2022-02-14] MEDS: traZODone 50 MG TABLET PO SCH (20:07)
[2022-02-14] MEDS: *HR* LORazepam 1 MG TABLET PO PRN (20:08)
[2022-02-14] MEDS ORDERED: QUEtiapine Fumarate 100 MG TABLET PO SCH (21:00)
[2022-02-14 22:14] VITALS: BP 128/65; PULSE 89; TEMP 98.3; O2SAT 99
[2022-02-15] MEDS: carBAMazepine 200 MG TABLET PO SCH (11:20)
[2022-02-15] MEDS: *HR* LORazepam 1 MG TABLET PO PRN (12:39)
== END 2022-02-15 13:05 | disposition home or self-care (01) | DRG 753 ==
LOC: EMEROOARM 17:14 → 1ANU 22:53
PROVIDERS: ADMIT Psychiatry & Neurology Psychiatry; ATTEND Psychiatry & Neurology Psychiatry

== ENCOUNTER 2022-03-22 08:44 | Inpatient (IN) ==
[2022-03-22 13:06] LABS: Influenza A PCR Negative (Negative); Influenza B PCR Negative (Negative); Resp. Syncytial Virus PCR Negative (Negative)
[2022-03-22 13:07] LABS: SARS-CoV-2 by PCR (In House) Negative (Negative)
[2022-03-22] MEDS ORDERED: haloperidoL 5 MG TABLET PO PRN (15:40)
[2022-03-22] MEDS ORDERED: hydrOXYzine pamoate 25 MG CAPSULE PO PRN (15:40)
[2022-03-22] MEDS ORDERED: *HR* LORazepam 1 MG TABLET PO PRN (15:40)
[2022-03-22] MEDS ORDERED: Acetaminophen 325 MG TABLET PO PRN (15:40)
[2022-03-22] MEDS ORDERED: *HR* LORazepam 2 MG/ML VIAL IM PRN (15:40)
[2022-03-22] MEDS ORDERED: Haloperidol Lactate 5 MG/ML VIAL IM PRN (15:40)
[2022-03-22] MEDS ORDERED: traZODone 50 MG TABLET PO PRN (15:45)
[2022-03-23] MEDS ORDERED: Mag Hydrox/Al Hydrox/Simeth 30 ML UDC PO PRN (08:05)
[2022-03-23] MEDS ORDERED: MOM Conc 10 ML UD.LIQ PO PRN (08:05)
[2022-03-24] MEDS ORDERED: QUEtiapine Fumarate 100 MG TABLET PO SCH (21:00)
[2022-03-25 09:07] VITALS: BP 104/63; PULSE 66; TEMP 97.4; O2SAT 98
== END 2022-03-25 11:05 | disposition other institution (70) | DRG 751 ==
LOC: 1ANU 08:44 → EMEROOARM 08:44 → 1ANU 15:58
PROVIDERS: ADMIT Psychiatry & Neurology Psychiatry; ATTEND Psychiatry & Neurology Psychiatry